=== PATIENT | female | born 1945 | race Caucasian/White ===

== ENCOUNTER → 2020-01-31 15:01 | Outpatient (BNVA) | payer MEDICARE, BC, SELFPAY | PROVIDERS: Family Provider Nurse Practitioner; PCP Family Medicine; Visit Provider Family Medicine | DX: I10 Essential (primary) hypertension (principal); Z12.31 Encounter for screening mammogram for malignant neoplasm of breast; K21.9 Gastro-esophageal reflux disease without esophagitis; M54.32 Sciatica, left side; M54.31 Sciatica, right side | CPT/HCPCS: 80053; 80061; 84443; 85025 ==

== ENCOUNTER → 2020-02-07 09:08 | Outpatient (BNVA) | payer MEDICARE, BC, SELFPAY | PROVIDERS: Family Provider Nurse Practitioner; PCP Family Medicine; Visit Provider Family Medicine | DX: R89.9 Unspecified abnormal finding in specimens from other organs, systems and tissues (principal) | CPT/HCPCS: 80053; 85025 ==

== ENCOUNTER → 2020-05-18 12:43 | Outpatient (BNVA) | payer MEDICARE, BC, SELFPAY | PROVIDERS: Family Provider Nurse Practitioner; PCP Family Medicine; Visit Provider Family Medicine | DX: Z20.828 Contact with and (suspected) exposure to other viral communicable diseases (principal) | CPT/HCPCS: 87635 ==

== ENCOUNTER → 2020-10-10 08:37 | Outpatient (BNVA) | payer MEDICARE, BC, SELFPAY | PROVIDERS: Family Provider Nurse Practitioner; PCP Family Medicine; Visit Provider Internal Medicine Cardiovascular Disease | DX: E78.5 Hyperlipidemia, unspecified (principal); R60.9 Edema, unspecified; N18.9 Chronic kidney disease, unspecified; Z79.01 Long term (current) use of anticoagulants; I50.33 Acute on chronic diastolic (congestive) heart failure; I10 Essential (primary) hypertension | CPT/HCPCS: 80048; 80061; 80076; 83880; 84443; 85025 ==

== ENCOUNTER 2020-10-25 15:28 | Outpatient (CLI) | payer MEDICARE, BC, SELFPAY ==
--- NOTE | 2020-10-25 15:45 | USCV_ITS ---
Hetal Maldonado Age: 75 Gender: F : 1945 Exam Date: 10/25/2020 15:52 Ordering Phys: Elias Han MD ([email or web address]) Technologist: Steve Steward Exam Location: [facility] [place] Indication: SOB BP: 186 / 90 HR: 63 Rhythm: Sinus Technical Quality: Good MEASUREMENTS (Male / Female) Normal Values 2D ECHO LV Diastolic Diameter PLAX 3.7 cm 4.2 - 5.9 / 3.9 - 5.3 cm LV Systolic Diameter PLAX 2.3 cm IVS Diastolic Thickness 1.4 cm 0.6 - 1.0 / 0.6 - 0.9 cm IVS Systolic Thickness 1.7 cm LVPW Diastolic Thickness 1.8 cm 0.6 - 1.0 / 0.6 - 0.9 cm LVPW Systolic Thickness 2.3 cm LVOT Diameter 2.0 cm LV Ejection Fraction 2D Teich 67.4 % LV Ejection Fraction MOD 2C 58.2 % LV Ejection Fraction 2C AL 59.4 % LA Diameter 3.7 cm LA Width 3.8 cm LA Height 5.8 cm RA Width 3.7 cm RA Height 4.5 cm Aorta at Sinotubular Diameter 2.3 cm M-MODE LV Diastolic Diameter MM 4.4 cm 4.2 - 5.9 / 3.9 - 5.3 cm LV Systolic Diameter MM 2.5 cm LV Ejection Fraction MM Teich 75.5 % IVS Diastolic Thickness MM 2.1 cm 0.6 - 1.0 / 0.6 - 0.9 cm IVS Systolic Thickness MM 2.0 cm LVPW Diastolic Thickness MM 1.1 cm 0.6 - 1.0 / 0.6 - 0.9 cm LVPW Systolic Thickness MM 1.6 cm Aortic Annulus Diameter 2.5 cm LA Ao Ratio MM 1.5 MV E Point Septal Separation 0.4 cm DOPPLER AV Peak Velocity 232.0 cm/s LVOT Peak Velocity 173.0 cm/s AV Area Cont Eq vti 2.5 cm squared AV Area Cont Eq pk 2.3 cm squared MV Area PHT 3.3 cm squared Mitral E to A Ratio 1.2 MV E' Velocity 81.0 cm/s Mitral E to MV E' Ratio 16.8 Mitral E to LV E' Lateral Ratio 16.0 Mitral E to LV E' Septal Ratio 17.5 TR Peak Velocity 325.0 cm/s TR Peak Gradient 42.3 mmHg TR Mean Velocity 229.2 cm/s TR Mean Gradient 23.9 mmHg TR Velocity Time Integral 93.6 cm PV Peak Velocity 80.0 cm/s RV Acceleration Time 0.1 s RV Ejection Time 0.3 s RV AcT/ET 0.5 FINDINGS Left Ventricle Normal left ventricular size and systolic function, EF 65 %. Mild left ventricular hypertrophy. No regional wall motion abnormalities. Grade III/IV diastolic dysfunction (restrictive filling pattern), severely elevated filling pressures. Right Ventricle The right ventricle is normal in size and function. Right Atrium The right atrium is normal in size. Left Atrium Mildly increased left atrial size. Mitral Valve Thickened mitral valve. Moderate mitral annular calcification. Mild mitral valve regurgitation. Aortic Valve Thickened aortic valve. Aortic valve sclerosis. Tricuspid Valve Mild tricuspid valve regurgitation. Pulmonic Valve Pulmonic valve not well visualized. Pericardium Normal pericardium without effusion. Aorta Normal ascending aorta dimension. CONCLUSIONS Normal left ventricular size and systolic function, EF 65 %. Mild left ventricular hypertrophy. No regional wall motion abnormalities. Grade III/IV diastolic dysfunction (restrictive filling pattern), severely elevated filling pressures. Thickened mitral valve. Moderate mitral annular calcification. Mild mitral valve regurgitation. Mildly increased left atrial size. Aortic valve sclerosis. Mild tricuspid valve regurgitation. Estimated pulmonary artery peak systolic pressure of 24 mmHg There is no pericardial effusion. There are no intracardiac masses. No previous study is available for comparison. Dr Elias Han MD [facility] (Electronically Signed) Final Date: 26 October 2020 16:51 S
== END 2020-10-25 15:29 | disposition home or self-care (01) ==
LOC: US 15:29
PROVIDERS: PCP Family Medicine; Visit Provider Internal Medicine Cardiovascular Disease
DX: R06.02 Shortness of breath (principal); I08.3 Combined rheumatic disorders of mitral, aortic and tricuspid valves
CPT/HCPCS: 93306

== ENCOUNTER → 2020-11-06 09:59 | Outpatient (BNVA) | payer MEDICARE, BC, SELFPAY | PROVIDERS: PCP Family Medicine; Visit Provider Internal Medicine Cardiovascular Disease | DX: R06.02 Shortness of breath (principal); R60.9 Edema, unspecified; E07.9 Disorder of thyroid, unspecified | CPT/HCPCS: 83880; 84443 ==

== ENCOUNTER → 2020-11-20 08:48 | Outpatient (BNVA) | payer MEDICARE, BC, SELFPAY | PROVIDERS: PCP Family Medicine; Visit Provider Internal Medicine Cardiovascular Disease | DX: R06.02 Shortness of breath (principal); R60.9 Edema, unspecified; I50.33 Acute on chronic diastolic (congestive) heart failure | CPT/HCPCS: 80048; 83880 ==

== ENCOUNTER 2020-12-04 07:08 | Outpatient (CLI) | payer MEDICARE, BC, SELFPAY ==
[2020-12-04 07:46] VITALS: BMI 33.7
--- NOTE | 2020-12-04 07:49 | ECG_ITS ---
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 Interpretive Statements NAME OF STUDY: LEXISCAN SESTAMIBI STRESS TEST INDICATION: Sob, PROCEDURE: At the baseline, the EKG revealed normal sinus rhythm with normal ST-T's. The baseline blood pressure was 182/71 mm Hg with a heart rate of 71 beats/min. Lexiscan was infused over a period of 20 seconds. A total of 0.4 milligrams of Lexiscan was infused. The stress phase was continued for a total of 5 minutes. Heart rate at the end of the stress phase was 80/min with a blood pressure 182/56 mmHg. The EKG at the peak infusion revealed no significant changes. Sestamibi was injected 20 seconds after the Lexiscan infusion. Blood pressure at the end of the recovery phase was 170/58 with a heart rate of 76 per minute. CONCLUSION: 1. No significant EKG changes with the LexiScan infusion 2. No LexiScan induced chest pain or cardiac arrhythmia 3. Normal blood pressure and heart rate response 4. Sestamibi/sestamibi perfusion scan pending; see separate report. Electronically Signed On 12-06-2020 8:42:44 CDT by Elias Han M.D. [id number]
--- NOTE | 2020-12-04 07:50 | NMCV_ITS ---
NM lori perf SPECT r/s* [id number] Hetal Maldonado Age: 75 Gender: F : 1945 Exam Date: 12/04/2020 08:43 Ordering Phys: Elias Han MD ([email or web address]) Technologist: CRISTAL Mendez Exam Location: [facility] Indications: SHORTNESS OF BREATH STRESS TEST Please see separate stress test report in [facility] for full findings IMAGE PROTOCOL Rest/Stress 1 Lexiscan Day Radiopharmaceutical Dose (mCi) Administration Site Administered by Rest: Tc-99m 10.8 IV CRISTAL Mendez Sestamibi Stress:Tc-99m 32.9 IV CRISTAL Ayala Sestamibi Rest: 04-Dec-2020 60 Discovery 630 Stress: 04-Dec-2020 30 Discovery 630 0.4mg Lexiscan. Images obtained in supine and prone position. SPECT RESULTS Technical Quality: Excellent Raw Data Analysis: Normal Image Corrections: No attenuation or motion correction applied Summed Stress Score: 1 Summed Rest Score: 0 Summed Difference Score: 1 PERFUSION FINDINGS Small area of decreased aseptic was noted in the apical lateral region with a complete reversibility. No other significant perfusion of normalities were noted. FUNCTIONAL RESULTS (calculated via Gated SPECT) Stress Image LV EF (%): 83 Stress EDV (mL):60 TID: 0.87 Stress ESV (mL):10 FUNCTIONAL FINDINGS: Segmental wall motion analysis revealing no gross wall motion normalities. IMPRESSIONS 1. Myocardial perfusion imaging revealing a small area of reversible defect in the apical lateral region, suggestive of ischemia in the distribution of the left circumflex artery. 2. Normal LV ejection fraction of 83%. 3. LV wall motion analysis revealing no gross wall motion normalities. 4. Normal LV volume. No similar previous studies are available for comparison Corrected copy of the report from 12/04/2020 Dr Elias Han MD [facility] (Electronically Signed) Final Date: 04 December 2020 17:40 Amended: 05 December 2020 18:29 C
[2020-12-04] MEDS: regadenoson 0.4 Mg/5 ml Syringe IVP (09:34)
[2020-12-04 09:36] VITALS: BP 170/58; PULSE 76
== END 2020-12-04 07:09 | disposition home or self-care (01) ==
LOC: CDL 07:10
PROVIDERS: PCP Family Medicine; Visit Provider Internal Medicine Cardiovascular Disease
DX: R06.02 Shortness of breath (principal)
CPT/HCPCS: 78452; 93017; A9500; J2785

== ENCOUNTER → 2021-03-20 10:46 | Outpatient (BNVA) | payer MEDICARE, BC, SELFPAY | PROVIDERS: PCP Family Medicine; Visit Provider Internal Medicine Cardiovascular Disease | DX: I50.33 Acute on chronic diastolic (congestive) heart failure (principal); E78.5 Hyperlipidemia, unspecified; R06.02 Shortness of breath; Z79.01 Long term (current) use of anticoagulants | CPT/HCPCS: 80048; 80061; 83880 ==

== ENCOUNTER → 2021-05-16 09:16 | Outpatient (BNVA) | payer MEDICARE, BC, SELFPAY | PROVIDERS: PCP Family Medicine; Visit Provider Family Medicine | DX: I11.0 Hypertensive heart disease with heart failure (principal); I50.33 Acute on chronic diastolic (congestive) heart failure; M79.671 Pain in right foot | CPT/HCPCS: 73630; 80061; 80076 ==

== ENCOUNTER → 2021-06-12 12:59 | Outpatient (BNVA) | payer MEDICARE, BC, SELFPAY | PROVIDERS: PCP Family Medicine; Referring Provider Family Medicine; Visit Provider Podiatrist Foot & Ankle Surgery | DX: M79.671 Pain in right foot (principal); Z46.89 Encounter for fitting and adjustment of other specified devices | CPT/HCPCS: 73630; 97760; L4397 ==

== ENCOUNTER 2021-06-12 14:54 | Outpatient (CLI) | payer MEDICARE, BC, SELFPAY | END 2021-06-12 14:55 | disposition home or self-care (01) | LOC: SPT 14:54 | PROVIDERS: PCP Family Medicine; Visit Provider Podiatrist Foot & Ankle Surgery | DX: Z46.89 Encounter for fitting and adjustment of other specified devices (principal); M79.671 Pain in right foot | CPT/HCPCS: 97760; L4397 ==

== ENCOUNTER 2021-07-08 08:35 | Emergency (ER) | payer MEDICARE, BC, SELFPAY ==
[2021-07-08 08:40] VITALS: BP 146/68; PULSE 74; RESP 18; TEMP 36.6; O2SAT 99; BMI 34.3
--- NOTE | 2021-07-08 09:32 | ECG_ITS ---
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 Measurements Intervals [place] Rate: 61 P: 72 WV: 141 QRS: 5 QRSD: 105 T: 64 QT: 419 QTc: 425 Interpretive Statements SINUS RHYTHM WITH SINUS ARRHYTHMIA LOW QRS VOLTAGE IN PRECORDIAL LEADS [QRS DEFLECTION < 1.0 mV IN CHEST LEADS] INCOMPLETE RIGHT BUNDLE BRANCH BLOCK [90+ ms QRS DURATION, TERMINAL R IN V1/V2, 40+ ms S IN I/aVL/V4/V5/V6] No previous ECG available for comparison Electronically Signed On 07-08-2021 16:45:13 SANITATION WORKER by Campbell Martinez M.D. [email or web address] medical [email or web address] system [id number]
--- NOTE | 2021-07-08 09:33 | XRR_ITS ---
PROCEDURE INFORMATION: Exam: XR Chest Exam date and time: 07/08/2021 9:33 AM Age: 76 years old Clinical indication: Cough and dyspnea; Prior surgery; Surgery type: Mohs; Patient HX: History--diffculty breathing, productive cough. Congestion in chest. No fever; Additional info: Dyspnea/cough TECHNIQUE: Imaging protocol: XR of the chest. Views: 1 view. COMPARISON: No relevant prior studies available. FINDINGS: Lungs: Lungs are well aerated without a focal area of consolidation. Pleural spaces: Unremarkable. No pleural effusion. No pneumothorax. Heart/Mediastinum: The cardiac silhouette appears enlarged, some of which is magnification related to the AP projection. Bones/joints: Unremarkable. XR/XR chest 1V portable [id number] IMPRESSION: Lungs are well aerated without a focal area of consolidation. Radiation Dose CTDIVOL = (mGy): DLP = (mGy-cm)
--- NOTE | 2021-07-08 09:33 | ED_ITS ---
HPI - SOB/Dyspnea General: Chief Complaint: Shortness of Breath/Dyspnea Stated Complaint: Trouble Breathing Time Seen by Provider: 07/08/21 09:08 History of Present Illness: HPI Narrative: 68-year-old female comes in planing of cough cold congestion that started 2 days ago. Mildly productive cough clear to yellow sputum. Patient reports having had asthma problems in the past. She did have Covid that she is known of but she has been vaccinated. Denies fever sweats chills denies any diarrhea. MD elicited complaint: shortness of breath and cough Pertinent past history: asthma Onset (ago): day(s) (2) Timing: constant Severity: mild Exacerbating factors: coughing Relieving factors: rest Known history of: asthma Associated symptoms: Reports chest congestion and cough; Deny abdominal pain, chest pain, diaphoresis, dizziness, extremity pain, fever(s), hemoptysis, lightheadedness, myalgias, nausea, orthopnea, palpitations, paresthesias, polydipsia, polyuria, rash, sense of impending doom, syncope or vomiting Treatment prior to arrival: none Review of Systems Const: Denies: fever(s) or diaphoresis ENMT: Denies: throat pain, ear or mastoid pain, nasal discharge or nasal congestion Card: Denies: chest pain, palpitations, lightheadedness, syncope or orthopnea Resp: Reports: chest congestion; Denies: hemoptysis GI: Denies: abdominal pain, nausea or vomiting : Denies: flank pain, difficulty voiding, dysuria, urinary frequency or urinary urgency Musc: Denies: extremity pain Skin/Breast: Denies: rash or pruritus Neuro: Denies: dizziness Endo: Denies: polyuria or polydipsia PFSH ED PFSH: Medical History (Updated 07/08/21 @ 10:34 by Thomas Vivar DO) Gastroesophageal reflux disease History of skin cancer Hypertension Family History Mother Anesthesia complication CAD (coronary artery disease) Father Cancer Lung disease Grandmother CAD (coronary artery disease) Diabetes Denies family history of Clotting disorder Dementia Chronic kidney disease (CKD) Suicide Bleeding disorder Stroke Social History Alcohol intake: never Marital status: / Current occupational status: retired Physical Exam Const: COMMON NORMALS: no acute distress GENERAL APPEARANCE: cooperative and comfortable ORIENTATION/CONSCIOUSNESS: Yes awake, Yes oriented to person, Yes oriented to place and Yes oriented to time HENMT: COMMON NORMALS: normocephalic and atraumatic HEAD & SCALP: normocephalic and atraumatic Neck/C-Spine: COMMON NORMALS: no JVD Resp: COMMON NORMALS: normal respiratory effort, No retractions and No use of accessory muscles AUSCULTATION: rhonchi right upper and wheezes Cardio: COMMON NORMALS: no JVD, regular rate, regular rhythm and No murmurs present (Cardio) RATE: regular rate RHYTHM: regular rhythm GI: COMMON NORMALS: Soft to palpation and No hepatosplenomegaly present AUSCULTATION: Yes normoactive bowel sounds PALPATION: Yes Soft to palpation, No Tenderness to palpation present (GI), No Guarding due to palpation present (GI) and Yes No hepatosplenomegaly present Extremity: COMMON NORMALS: normal to inspection, capillary refill normal, no clubbing, cyanosis or edema, no calf tenderness and no pedal edema Neuro: SENSORIUM/ORIENTATION: Yes oriented to person, Yes oriented to place and Yes oriented to time Skin: COMMON NORMALS: no rashes or lesions noted GENERAL SKIN EXAM: no rashes or lesions noted Course Vital Signs: Vital signs: Vital Signs Temperature 97.9 F 07/08/21 08:40 Pulse Rate 74 07/08/21 08:40 Respiratory Rate 18 07/08/21 08:40 Blood Pressure 146/68 07/08/21 08:40 Pulse Oximetry 99 07/08/21 08:40 MDM - SOB/Dyspnea MDM Narrative: Medical decision making narrative: Reviewed labs and imaging. We did swab her for Covid will contact you with results discharge now for with doxycycline Medrol Dosepak albuterol as needed she said her sats are good she no need for oxygen supplementation recommend self quarantine until results are back. Lab Data: Labs: Lab Results 07/08/21 07/08/21 07/08/21 09:51 09:51 10:53 WBC 13.0 10^3/uL H 10 ^3/uL (4.0-10.0) RBC 3.98 10^6/uL L 10 ^6/uL (4.1-5.3) Hgb 13.0 g/dL g/dL (11.5-15.3) Hct 38.4 % % (37.0-47.0) MCV 96.5 fl fl (81-99) MCH 32.7 pg pg (28.0-34.0) MCHC 33.9 g/dL g/dL (30.0-36.0) RDW 12.1 % % (12.1-15.1) Plt Count 121 10^3/cmm L 10 ^3/cmm (130-400) MPV 12.8 fL H fL (7.4-10.4) Neut % (Auto) 76.5 % % Lymph % (Auto) 15.3 % % [place] % (Auto) 6.6 % % Eos % (Auto) 0.7 % % Baso % (Auto) 0.1 % % Neut # (Auto) 9.95 10^3/uL H 10 ^3/uL (1.8-7.7) Lymph # (Auto) 2.0 10^3/uL 10^3/ uL (0.8-4.8) [place] # (Auto) 0.9 10^3/uL 10^3/ uL (0.2-0.9) Eos # (Auto) 0.1 10^3/uL 10^3/ uL (0.0-0.8) Baso # (Auto) 0.0 10^3/uL 10^3/ uL (0.0-0.1) Nucleated RBC % (a uto) 0 % % Nucleated RBCs # 0.0 /100WBC /100W BC Sodium 141 mmol/L mmol/L (136-145) Potassium 3.8 mmol/L mmol/L (3.5-5.1) Chloride 104 mmol/L mmol/L (98-107) Carbon Dioxide 24 mmol/L mmol/L (22-29) Anion Gap 16.8 (5-19) BUN 22 mg/dL mg/dL (8-23) Creatinine 1.1 mg/dL H mg/dL (0.5-0.9) GFR Calculation Not Reportable Glucose 114 mg/dL mg/dL (65-115) Calculated Osmolal ity 296 mOsm/kg H mOs m/kg (285-295) Calcium 9.4 mg/dL mg/dL (8.5-10.5) Total Bilirubin 0.2 mg/dL mg/dL (0.15-1.2) AST 13 U/L U/L (0-32) ALT 9 U/L U/L (0-33) Alkaline Phosphata se 80 IU/L IU/L (35-105) Total Protein 6.7 g/dL g/dL (6.6-8.7) Albumin 3.8 g/dL g/dL (3.5-5.2) Globulin 2.9 g/dL g/dL (1.3-4.6) SARS-CoV-2 Ag (Rap id) Negative (Negative) Discharge Plan Discharge Patient Disposition: Home Clinical Impression: Bronchitis Condition: Stable Prescriptions: New doxycycline hyclate 100 mg capsule 100 mg PO BID 10 Days Qty: 20 RF: 0 Medrol (Carlo) 4 mg tablets,dose pack See Rx Instructions .ROUTE .COMPLEX Qty: 21 RF: 0 albuterol sulfate 90 mcg/actuation HFA aerosol inhaler 2 inh INHALATION Q4H PRN (Reason: shortness of breath or wheezing) Qty: 18 R F: 0 No Action aspirin [Adult Low Dose Aspirin] 81 mg tablet,delayed release (DR/EC) 81 mg PO DAILY RF: 0 omeprazole 20 mg capsule,delayed release(DR/EC) 40 mg PO DAILY RF: 0 carvedilol 12.5 mg tablet 6.25 mg PO BID RF: 0 potassium chloride 10 mEq capsule, extended release See Rx Instructions .ROUTE .COMPLEX Qty: 90 RF: 1 furosemide 40 mg tablet 40 mg PO BID Qty: 60 RF: 4 cholecalciferol (vitamin D3) 25 mcg (1,000 unit) tablet 100 mcg PO DAILY RF: 0 PreserVision AREDS-2 [id number] dd-frod-re-mg capsule 1 tab PO BID RF: 0 ascorbate calcium (vitamin C) 500 mg tablet 500 mg PO BID RF: 0 (DME) Night Splint to the right See Rx Instructions .Route .MEDSUPPLY Qty: 1 RF: 0 rosuvastatin [Crestor] 10 mg tablet 10 mg PO DAILY Qty: 30 RF: 5 amlodipine 10 mg tablet 10 mg PO DAILY Qty: 30 RF: 5 spironolactone 25 mg tablet 25 mg PO DAILY 30 Days Qty: 90 RF: 3 Discharge Orders: Discharge ED (Routine); Ordered 11/08/21 Ordered By: Thomas Vivar Referrals: Jessie Villalpando MD [Primary Care Provider] - Patient Instructions: Opioid Safety Coding Level of Care Code ED Catapult And Arresting Gear Officer for Chg Fwd Exam Comprehensive
[2021-07-08 10:05] LABS: Basophils % 0.1 %; Eosinophils # 0.1 10^3/uL (0.0-0.8); Eosinophils % 0.7 %; Hematocrit 38.4 % (37.0-47.0); Lymphocytes % 15.3 %; Mean Corpuscular HGB Conc 33.9 g/dL (30.0-36.0); Mean Corpuscular Hemoglobin 32.7 pg (28.0-34.0); Mean Corpuscular Volume 96.5 fl (81-99); Mean Platelet Volume 12.8 fL (7.4-10.4); Monocytes # 0.9 10^3/uL (0.2-0.9); Monocytes % 6.6 %; Neutrophils # 9.95 10^3/uL (1.8-7.7); Neutrophils % 76.5 %; Nucleated Red Blood Cells % 0 %; Platelet Count 121 10^3/cmm (130-400); Red Blood Count 3.98 10^6/uL (4.1-5.3); Red Cell Distribution Width 12.1 % (12.1-15.1)
[2021-07-08 10:18] LABS: Alanine Aminotransferase 9 U/L (0-33); Albumin Level 3.8 g/dL (3.5-5.2); Alkaline Phosphatase 80 IU/L (35-105); Anion Gap 16.8 (5-19); Aspartate Amino Transferase 13 U/L (0-32); Blood Urea Nitrogen 22 mg/dL (8-23); Calcium 9.4 mg/dL (8.5-10.5); Carbon Dioxide 24 mmol/L (22-29); Chloride 104 mmol/L (98-107); Globulin 2.9 g/dL (1.3-4.6); Glucose 114 mg/dL (65-115); Osmolality Calculated 296 mOsm/kg (285-295); Potassium 3.8 mmol/L (3.5-5.1); Sodium 141 mmol/L (136-145); Total Bilirubin 0.2 mg/dL (0.15-1.2); Total Protein 6.7 g/dL (6.6-8.7)
[2021-07-08 12:07] LABS: SARS Covid-2 Antigen Negative (Negative)
[2021-07-09 14:34] LABS: Coronavirus Test Green County Not Detected
--- NOTE | 2021-07-09 16:24 | PC.NURSE ---
Notified pt of negative COVID
== END 2021-07-08 11:49 | disposition home or self-care (01) ==
PROVIDERS: Emergency Provider Family Medicine; PCP Family Medicine
DX: J40 Bronchitis, not specified as acute or chronic (principal); Z79.82 Long term (current) use of aspirin; Z85.828 Personal history of other malignant neoplasm of skin; K21.9 Gastro-esophageal reflux disease without esophagitis; I10 Essential (primary) hypertension
CPT/HCPCS: 36415; 71045; 80053; 85025; 87426; 87635; 93005; 99282

== ENCOUNTER → 2021-09-16 12:05 | Outpatient (BNVA) | payer MEDICARE, BC, SELFPAY | PROVIDERS: PCP Family Medicine; Visit Provider Internal Medicine Cardiovascular Disease | DX: I11.0 Hypertensive heart disease with heart failure (principal); I50.33 Acute on chronic diastolic (congestive) heart failure; R06.02 Shortness of breath; R60.9 Edema, unspecified; E78.5 Hyperlipidemia, unspecified; N18.9 Chronic kidney disease, unspecified; Z79.01 Long term (current) use of anticoagulants | CPT/HCPCS: 80048; 80061 ==

== ENCOUNTER 2021-11-05 07:35 | Outpatient (CLI) | payer MEDICARE, BC, SELFPAY | END 2021-11-05 07:36 | disposition home or self-care (01) | LOC: SPT 07:36 | PROVIDERS: PCP Family Medicine; Visit Provider Podiatrist Foot & Ankle Surgery | DX: Z46.89 Encounter for fitting and adjustment of other specified devices (principal); M21.41 Flat foot [pes planus] (acquired), right foot; M21.42 Flat foot [pes planus] (acquired), left foot; M72.2 Plantar fascial fibromatosis | CPT/HCPCS: 97760; L3030 ==

== ENCOUNTER → 2021-11-26 13:33 | Outpatient (BNVA) | payer MEDICARE, BC, SELFPAY | PROVIDERS: PCP Family Medicine; Visit Provider Family Medicine | DX: R05.9 Cough, unspecified (principal) | CPT/HCPCS: 71046 ==

== ENCOUNTER → 2022-03-20 12:17 | Outpatient (BNVA) | payer MEDICARE, BC, SELFPAY | PROVIDERS: PCP Family Medicine; Visit Provider Internal Medicine Cardiovascular Disease | DX: I13.0 Hypertensive heart and chronic kidney disease with heart failure and stage 1 through stage 4 chronic kidney disease, or unspecified chronic kidney disease (principal); N18.9 Chronic kidney disease, unspecified; R06.02 Shortness of breath; R60.9 Edema, unspecified; E78.5 Hyperlipidemia, unspecified; I50.33 Acute on chronic diastolic (congestive) heart failure; Z79.01 Long term (current) use of anticoagulants; R07.9 Chest pain, unspecified; I49.9 Cardiac arrhythmia, unspecified | CPT/HCPCS: 36415; 80048; 80061; 80076; 83880; 84443 ==

== ENCOUNTER → 2022-04-17 08:54 | Outpatient (BNVA) | payer MEDICARE, BC, SELFPAY | PROVIDERS: PCP Family Medicine; Visit Provider Internal Medicine Cardiovascular Disease | DX: R79.89 Other specified abnormal findings of blood chemistry (principal); E07.9 Disorder of thyroid, unspecified | CPT/HCPCS: 84443 ==

== ENCOUNTER → 2022-06-20 12:10 | Outpatient (BNVA) | payer MEDICARE, BC, SELFPAY | PROVIDERS: PCP Family Medicine; Visit Provider Family Medicine | DX: E03.9 Hypothyroidism, unspecified (principal); E78.5 Hyperlipidemia, unspecified; I10 Essential (primary) hypertension; R60.9 Edema, unspecified; K21.9 Gastro-esophageal reflux disease without esophagitis | CPT/HCPCS: 80053; 80061; 84443; 85025 ==

== ENCOUNTER → 2022-10-08 11:45 | Outpatient (BNVA) | payer MEDICARE, BC, SELFPAY | PROVIDERS: PCP Family Medicine; Visit Provider Internal Medicine Cardiovascular Disease | DX: I11.0 Hypertensive heart disease with heart failure (principal); I50.32 Chronic diastolic (congestive) heart failure; R00.2 Palpitations; R06.02 Shortness of breath; E78.5 Hyperlipidemia, unspecified; G47.33 Obstructive sleep apnea (adult) (pediatric); Z99.89 Dependence on other enabling machines and devices; I10 Essential (primary) hypertension; R60.9 Edema, unspecified | CPT/HCPCS: 36415; 80048; 83880; 99214 ==

== ENCOUNTER 2022-11-10 09:22 | Outpatient (CLI) | payer MEDICARE, BC, SELFPAY ==
[2022-11-10 10:21] LABS: Anion Gap 16.7 (5-19); Blood Urea Nitrogen 25 mg/dL (8-23); Calcium 9.7 mg/dL (8.5-10.5); Carbon Dioxide 23 mmol/L (22-29); Chloride 100 mmol/L (98-107); Glucose 105 mg/dL (65-115); NT Pro B Type Natriuretic Pept 439 pg/mL (0-450); Osmolality Calculated 285 mOsm/kg (285-295); Potassium 4.7 mmol/L (3.5-5.1); Sodium 135 mmol/L (136-145)
== END 2022-11-10 09:23 | disposition home or self-care (01) ==
LOC: LAB 09:28
PROVIDERS: PCP Family Medicine; Visit Provider Internal Medicine Cardiovascular Disease
DX: I10 Essential (primary) hypertension (principal); I50.33 Acute on chronic diastolic (congestive) heart failure; R60.9 Edema, unspecified
CPT/HCPCS: 36415; 80048; 83880

== ENCOUNTER → 2022-12-01 08:37 | Outpatient (BNVA) | payer MEDICARE, BC, SELFPAY | PROVIDERS: PCP Family Medicine; Visit Provider Family Medicine | DX: N18.9 Chronic kidney disease, unspecified (principal) | CPT/HCPCS: 80048 ==

== ENCOUNTER → 2023-04-08 12:34 | Outpatient (BNVA) | payer MEDICARE, BC, SELFPAY | PROVIDERS: PCP Family Medicine; Visit Provider Internal Medicine Cardiovascular Disease | DX: I13.0 Hypertensive heart and chronic kidney disease with heart failure and stage 1 through stage 4 chronic kidney disease, or unspecified chronic kidney disease (principal); I50.33 Acute on chronic diastolic (congestive) heart failure; N18.9 Chronic kidney disease, unspecified; R60.9 Edema, unspecified; G47.33 Obstructive sleep apnea (adult) (pediatric); E78.5 Hyperlipidemia, unspecified | CPT/HCPCS: 99213 ==

== ENCOUNTER → 2023-04-20 09:34 | Outpatient (BNVA) | payer MEDICARE, BC, SELFPAY | PROVIDERS: PCP Family Medicine; Visit Provider Nurse Practitioner Family | DX: J20.9 Acute bronchitis, unspecified (principal); I10 Essential (primary) hypertension; E78.5 Hyperlipidemia, unspecified | CPT/HCPCS: 80053; 80061; 83880; 84443 ==

== ENCOUNTER → 2023-04-23 11:21 | Outpatient (BNVA) | payer MEDICARE, BC, SELFPAY | PROVIDERS: PCP Family Medicine; Visit Provider Nurse Practitioner Family | DX: I50.33 Acute on chronic diastolic (congestive) heart failure (principal) | CPT/HCPCS: 80053; 83880 ==

== ENCOUNTER → 2023-04-27 09:33 | Outpatient (BNVA) | payer MEDICARE, BC, SELFPAY | PROVIDERS: PCP Family Medicine; Visit Provider Nurse Practitioner Family | DX: I50.9 Heart failure, unspecified (principal); N18.9 Chronic kidney disease, unspecified | CPT/HCPCS: 80053; 83880 ==

== ENCOUNTER → 2023-05-07 11:27 | Outpatient (BNVA) | payer MEDICARE, BC, SELFPAY | PROVIDERS: PCP Family Medicine; Visit Provider Nurse Practitioner Family | DX: I50.9 Heart failure, unspecified (principal); I10 Essential (primary) hypertension; N18.32 Chronic kidney disease, stage 3b | CPT/HCPCS: 80053; 83880 ==

== ENCOUNTER 2023-05-15 08:03 | Outpatient (CLI) | payer MEDICARE, BC, SELFPAY ==
--- NOTE | 2023-05-15 08:45 | USCV_ITS ---
Hetal Maldonado Age: 78 Gender: F : 1945 Exam Date: 05/15/2023 09:00 Ordering Phys: Cristal Cornejo NP Technologist: CT Exam Location: [facility] [place] Indication: Chf BP: 124 / 70 HR: 51 Rhythm: Sinus Technical Quality: Adequate MEASUREMENTS (Male / Female) Normal Values 2D ECHO LV Chamber Size 4.3 cm RV Chamber Size 3.9 cm LVOT Diameter 1.9 cm LV Ejection Fraction MOD 2C 51.0 % LV Ejection Fraction 2C AL 52.4 % LA Diameter 4.2 cm LA Width 4.2 cm LA Height 6.0 cm RA Width 3.6 cm RA Height 4.9 cm Aorta at Sinotubular Diameter 1.9 cm IVC Diameter 1.6 cm M-MODE Aortic Annulus Diameter 2.5 cm LA Ao Ratio MM 1.8 MV E Point Septal Separation 1.3 cm DOPPLER AV Peak Velocity 196.0 cm/s LVOT Peak Velocity 162.0 cm/s AV Area Cont Eq vti 2.6 cm squared AV Area Cont Eq pk 2.4 cm squared MV Area PHT 2.1 cm squared Mitral E to A Ratio 1.1 MV E' Velocity 84.0 cm/s Mitral E to MV E' Ratio 19.4 Mitral E to LV E' Lateral Ratio 25.0 Mitral E to LV E' Septal Ratio 15.9 TR Peak Velocity 345.0 cm/s TR Peak Gradient 47.6 mmHg TV Peak E Velocity 91.0 cm/s Right Atrial Pressure 3.0 mmHg Pulmonary Artery Systolic Pressu 50.6 mmHg PV Peak Velocity 102.0 cm/s FINDINGS Left Ventricle Normal left ventricular size, systolic function and wall thickness, with no regional wall motion abnormalities. Left ventricular ejection fraction is estimated at 70 %. Grade II diastolic dysfunction, moderately elevated filling pressures. Right Ventricle Normal right ventricular size and systolic function. Right ventricular systolic pressure 55 mmHg. Right Atrium Normal right atrial size. Left Atrium Moderately increased left atrial size. Mitral Valve Severe mitral annular calcification. Thickened mitral valve. No mitral valve stenosis. Mild mitral valve regurgitation. Aortic Valve Aortic valve not well visualized. No aortic valve stenosis. [id number] aortic valve regurgitation. Tricuspid Valve Structurally normal tricuspid valve. No tricuspid valve stenosis. Moderate tricuspid valve regurgitation. Pulmonic Valve Pulmonic valve not well visualized. Pericardium No pericardial effusion. Aorta Normal size aortic root and proximal ascending aorta. IVC Normal IVC dimension with >50% respiratory change of the inferior vena cava. CONCLUSIONS 1. Normal left ventricular size, systolic function and wall thickness, with no regional wall motion abnormalities. Left ventricular ejection fraction is estimated at 70 %. Grade II diastolic dysfunction, moderately elevated filling pressures. 2. [id number] aortic valve regurgitation. 3. Moderate tricuspid valve regurgitation. 4. When compared to study dated 10/25/2020, there is aortic and tricuspid valve regurgitation. Vandana Mcpherson MD (Electronically Signed) Final Date: 25 May 2023 14:43 S
== END 2023-05-15 08:04 | disposition home or self-care (01) ==
PROVIDERS: PCP Family Medicine; Visit Provider Nurse Practitioner Family
DX: I13.0 Hypertensive heart and chronic kidney disease with heart failure and stage 1 through stage 4 chronic kidney disease, or unspecified chronic kidney disease (principal); I50.30 Unspecified diastolic (congestive) heart failure; N18.32 Chronic kidney disease, stage 3b; I35.1 Nonrheumatic aortic (valve) insufficiency; I07.1 Rheumatic tricuspid insufficiency; R06.02 Shortness of breath
CPT/HCPCS: 93306; 99214

== ENCOUNTER → 2023-06-22 11:29 | Outpatient (BNVA) | payer MEDICARE, BC, SELFPAY | PROVIDERS: PCP Family Medicine; Visit Provider Nurse Practitioner Family | DX: Z00.00 Encounter for general adult medical examination without abnormal findings (principal); N18.32 Chronic kidney disease, stage 3b; I50.9 Heart failure, unspecified; E03.9 Hypothyroidism, unspecified; I10 Essential (primary) hypertension; E78.5 Hyperlipidemia, unspecified; R06.02 Shortness of breath; I50.33 Acute on chronic diastolic (congestive) heart failure | CPT/HCPCS: 80053; 80061; 83880; 84443 ==

== ENCOUNTER → 2023-10-26 12:26 | Outpatient (BNVA) | payer MEDICARE, BC, SELFPAY | PROVIDERS: PCP Family Medicine; Visit Provider Internal Medicine Cardiovascular Disease | DX: R07.9 Chest pain, unspecified (principal); R06.02 Shortness of breath; I11.0 Hypertensive heart disease with heart failure; I50.33 Acute on chronic diastolic (congestive) heart failure; E78.5 Hyperlipidemia, unspecified; I27.20 Pulmonary hypertension, unspecified; R94.31 Abnormal electrocardiogram [ECG] [EKG] | CPT/HCPCS: 36415; 80048; 83880; 93005; 99214 ==

== ENCOUNTER 2023-11-04 09:26 | Outpatient (CLI) | payer MEDICARE, BC, SELFPAY ==
--- NOTE | 2023-11-04 | ECG_ITS ---
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 Interpretive Statements NAME OF STUDY: LEXISCAN SESTAMIBI STRESS TEST INDICATION: Chest Pain; CHF PROCEDURE: At the baseline, the EKG revealed sinus bradycardia with a possible left atrial lodgment. The baseline heart was 56 bpm with a blood pressue of 136/63 mm of Hg Lexiscan was infused over a period of 20 seconds. A total of 0.4 milligrams of Lexiscan was infused. The stress phase was continued for a total of 5 minutes. Heart rate at the end of the stress phase was 71 bpm with a blood pressure 113/42 mm of Hg. The EKG at the peak infusion revealed no significant changes. Sestamibi was injected 20 seconds after the Lexiscan infusion. Heart rate at the end of the recovery phase was 68 bpm with a blood pressure of 119/49 mm of Hg. CONCLUSION: 1. No significant EKG changes with the LexiScan infusion 2. No LexiScan induced chest pain or cardiac arrhythmia 3. Normal blood pressure and heart rate response 4. Sestamibi/sestamibi perfusion scan pending; see separate report. Electronically Signed On 11-07-2023 20:40:23 VOCAL TEACHER by Elias Han M.D. [id number]
[2023-11-04 09:30] VITALS: BMI 35.4
--- NOTE | 2023-11-04 09:31 | NMCV_ITS ---
NM lori perf SPECT r/s* [id number] Hetal Maldonado Age: 78 Gender: F : 1945 Exam Date: 11/04/2023 10:19 Ordering Phys: Elias Han MD ([email or web address]) Technologist: CRISTAL Mendez Exam Location: [facility] Indications: CORONARY ANGIOPLASTY STATUS STRESS TEST Please see separate stress test report in [facility] for full findings IMAGE PROTOCOL Rest/Stress 1 Lexiscan Day Radiopharmaceutical Dose (mCi) Administration Site Administered by Rest: Tc-99m 10.6 IV CRISTAL Ayala Sestamibi Stress:Tc-99m 32.9 IV CRISTAL Ayala Sestamibi Rest: 04-Nov-2023 60 Discovery 630 Stress: 04-Nov-2023 30 Discovery 630 0.4mg Lexiscan. Supine position only as patient was unable to lay prone. SPECT RESULTS Technical Quality: Excellent Raw Data Analysis: Normal Image Corrections: No attenuation or motion correction applied Summed Stress Score: 4 Summed Rest Score: 7 Summed Difference Score: 0 PERFUSION FINDINGS Small area of moderately decreased tracer uptake was noted in the mid inferolateral, apical lateral and LV apex. Subtle area of reversibility was noted in this region by SPECT imaging. However with the polar plots, no significant reversibility was noted FUNCTIONAL RESULTS (calculated via Gated SPECT) Stress Image LV EF (%): 91 Stress EDV (mL):53 TID: 1.09 Stress ESV (mL):5 FUNCTIONAL FINDINGS: Segmental wall motion analysis revealing no gross wall motion abnormalities IMPRESSIONS 1. Myocardial perfusion imaging revealing small area of moderately decreased persistent tracer uptake in the inferolateral and apical regions with a subtle area of inconsistent reversibility, suggesting myocardial scarring in the distribution of the left circumflex artery with a subtle area of possible yaron- infarction ischemia. 2. Normal LV ejection fraction with 91% 3. LV wall motion analysis revealing no gross wall motion abnormalities. 4. Normal LV volume Compared to the study from 12/04/2020, there may not be a significant change Dr Elias Han MD FAC (Electronically Signed) Final Date: 04 November 2023 13:53 S
[2023-11-04] MEDS: regadenoson 0.4 Mg/5 ml Syringe 0.400000000000000022 MG IVP (11:04)
[2023-11-04 11:27] VITALS: BP 119/64; PULSE 64
== END 2023-11-04 09:27 | disposition home or self-care (01) ==
PROVIDERS: PCP Family Medicine; Visit Provider Internal Medicine Cardiovascular Disease
DX: Z98.61 Coronary angioplasty status (principal)
CPT/HCPCS: 36415; 78452; 93017; 96374; A9500; J2785

== ENCOUNTER → 2023-12-08 09:02 | Outpatient (BNVA) | payer MEDICARE, BC, SELFPAY | PROVIDERS: PCP Family Medicine; Visit Provider Nurse Practitioner Family | DX: M79.671 Pain in right foot (principal); M79.672 Pain in left foot; N18.32 Chronic kidney disease, stage 3b; M54.50 Low back pain, unspecified | CPT/HCPCS: 80053; 84550; 85025 ==

== ENCOUNTER 2023-12-13 09:54 | Inpatient (IN) | payer MEDICARE, BC, SELFPAY ==
[2023-12-13] VITALS (10 sets, daily range): BP systolic 108–142; BP diastolic 51–71; PULSE 63–86; RESP 16–18; TEMP 36.3–37.1; O2SAT 93–99; BMI 35.0
--- NOTE | 2023-12-13 10:20 | ED_ITS ---
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 All of this started just about a week ago. She had seen her primary BIRTHING NURSE who initially prescribed her Macrobid for UTI which gave her diarrhea so she was changed to Levaquin. She also started her on allopurinol for gout. She had an elevated uric acid and does have a swollen red left great toe. Patient says she is continue to have swelling in her legs. She has diffuse abdominal pain. She describes abdominal pain in her low abdomen also in her left upper abdomen. She has had some nausea. No vomiting. She has had generalized weakness. No known fevers. Although she did have chills frequently initially during this illness. Review of Systems 2 Narrative: Constitutional symptoms: Negative except as documented in HPI. Skin symptoms: Negative except as documented in HPI. Eye symptoms: Negative except as documented in HPI. ENMT symptoms: Negative except as documented in HPI. Respiratory symptoms: Negative except as documented in HPI. Cardiovascular symptoms: Negative except as documented in HPI. Gastrointestinal symptoms: Negative except as documented in HPI. Genitourinary symptoms: Negative except as documented in HPI. Musculoskeletal symptoms: Negative except as documented in HPI. Neurologic symptoms: Negative except as documented in HPI. Psychiatric symptoms: Negative except as documented in HPI. Endocrine symptoms: Negative except as documented in HPI. [facility] ED 2 PFSH: Medical History History of skin cancer Hypertension Gastroesophageal reflux disease Family History Mother Anesthesia complication CAD (coronary artery disease) Father Cancer Lung disease Grandmother CAD (coronary artery disease) Diabetes Denies family history of Clotting disorder Dementia Chronic kidney disease (CKD) Suicide Bleeding disorder Stroke Social History Smoking and tobacco/nicotine status: never used tobacco/nicotine Alcohol intake: never Substance/Drug Use: never Marital status: / Current occupational status: retired Physical Exam 2 Narrative: EXAM NARRATIVE: General: Alert, no acute distress. Skin: Warm, dry. Head: Normocephalic, atraumatic. Neck: Supple, trachea midline. Eye: Extraocular movements are intact. Ears, nose, mouth and throat: mucosa moist. Cardiovascular: Regular, Normal peripheral perfusion. Trace tibial edema Respiratory: Lungs are clear to auscultation, respirations are non-labored, breath sounds are equal, Symmetrical chest wall expansion. Gastrointestinal: Soft, some mild generalized tenderness palpation,, Non distended, Normal bowel sounds. Musculoskeletal: Normal ROM, no deformity. Some redness and swelling in her left great toe at the base Neurological: Alert and oriented, No focal neurological deficit observed. Psychiatric: Cooperative, appropriate mood & affect. Course 2 Vital Signs: Vital signs: Vital Signs Temperature 98.8 F 12/13/23 10:09 Pulse Rate 70 12/13/23 14:00 Respiratory Rate 17 12/13/23 14:46 Blood Pressure 141/52 12/13/23 14:00 Pulse Oximetry 96 12/13/23 14:00 Oxygen Delivery Me thod Room Air 12/13/23 14:00 MDM - General Adult Medical Decision Making Medical decision making: Differential diagnosis including but not limited to and based on the above HPI, review of systems and physical exam: Patient has multiple complaints. I think she does have gout that may need further treatment than just allopurinol. As far as her abdominal pain goes she primarily complains of lower abdominal pain with radiation to her left flank. I have concerned she might have a UTI that would be resistant to Levaquin. Urinalysis is ordered. Also have concern for kidney failure so a BMP and CBC were ordered. With her chills and continued symptoms also ordered a lactate and blood cultures. Orders placed to evaluate differential diagnosis based on the above differential, HPI and physical exam Lab Review: Laboratory results were reviewed and interpreted by myself the emergency room physician. Patient has significant leukocytosis with a white count of 14,000 and a left shift of 87%. Hemoglobin is down slightly at 10.8. Her sodium is down at 129. Most significantly her BUN and creatinine are 56 and 4.5. Creatinine was 3.5 about 5 days ago. Before that she had mild chronic renal disease usually at around 1.4. I reviewed the patient's medical record. CT of the abdomen pelvis without contrast: No evidence of renal stones or obstruction. She has diverticulosis without diverticulitis. Reexamination: Patient says she is feeling short of breath after she laid flat. She is sitting upright now on a little bit tachypneic. Her O2 sats are good. She is complaining of pain. I have ordered some morphine and Zofran for her. Lab Data 12/13/23 10:40 12/13/23 10:40 Radiology Impressions Abdomen/Pelvis CT 12/13/23 13:09 IMPRESSION: 1. No small bowel obstruction, abscess or free air. 2. Moderate sigmoid diverticulosis. No strong evidence for diverticulitis. 3. There is slight 3rd spacing of fluid present with perinephric fat stranding, trace left effusion, and trace pelvic free fluid. 4. Severe atherosclerosis and other chronic findings above. Laboratory Results WBC 13.48 10^3/uL (3.29-11.43) H 12/13/23 10:40 RBC 3.24 10^6/uL (3.85-5.65) L 12/13/23 10:40 Hgb 10.80 g/dL (11.27-16.99) L 12/13/23 10:40 Hct 31.4 % (36-47) L 12/13/23 10:40 MCV 96.9 fl (85-98) 12/13/23 10:40 MCH 33.3 pg (27-33) H 12/13/23 10:40 MCHC 34.4 g/dL (30-55) 12/13/23 10:40 RDW 11.3 % (12.1-15.1) L 12/13/23 10:40 Plt Count 41 10^3/cmm (157-399) L 12/13/23 10:40 MPV 12.2 fL (7.4-10.4) H 12/13/23 10:40 Neut % (Auto) 87.1 % 12/13/23 10:40 Lymph % (Auto) 5.9 % 12/13/23 10:40 [place] % (Auto) 6.0 % 12/13/23 10:40 Eos % (Auto) 0.4 % 12/13/23 10:40 Baso % (Auto) 0.1 % 12/13/23 10:40 Neut # (Auto) 11.72 10^3/uL (1.8-7.7) H 12/13/23 10:40 Lymph # (Auto) 0.8 10^3/uL (0.8-4.8) 12/13/23 10:40 Woodruff # (Auto) 0.8 10^3/uL (0.2-0.9) 12/13/23 10:40 Eos # (Auto) 0.1 10^3/uL (0.0-0.8) 12/13/23 10:40 Baso # (Auto) 0.0 10^3/uL (0.0-0.1) 12/13/23 10:40 Nucleated RBC % (auto) 0 % 12/13/23 10:40 Nucleated RBCs # 0.0 /100WBC 12/13/23 10:40 Sodium 129 mmol/L (136-145) L 12/13/23 10:40 Potassium 5.1 mmol/L (3.5-5.1) 12/13/23 10:40 Chloride 99 mmol/L (98-107) 12/13/23 10:40 Carbon Dioxide 14 mmol/L (22-29) L 12/13/23 10:40 Anion Gap 21.1 (5-19) H 12/13/23 10:40 BUN 56 mg/dL (8-23) H 12/13/23 10:40 Creatinine 4.5 mg/dL (0.5-0.9) H 12/13/23 10:40 GFR Calculation Not Reportable 12/13/23 10:40 Glucose 119 mg/dL (65-115) H 12/13/23 10:40 Calculated Osmolality 285 mOsm/kg (285-295) 12/13/23 10:40 Lactic Acid 0.9 mmol/L (0.5-2.2) 12/13/23 10:40 Calcium 9.5 mg/dL (8.5-10.5) 12/13/23 10:40 Total Bilirubin 0.5 mg/dL (0.15-1.2) 12/13/23 10:40 AST 10 U/L (0-32) 12/13/23 10:40 ALT 7 U/L (0-33) 12/13/23 10:40 Alkaline Phosphatase 83 U/L (35-105) 12/13/23 10:40 C-Reactive Protein 120.8 mg/L (0.0-4.9) H 12/13/23 10:40 Total Protein 7.4 g/dL (6.6-8.7) 12/13/23 10:40 Albumin 3.3 g/dL (3.5-5.2) L 12/13/23 10:40 Globulin 4.1 g/dL (1.3-4.6) 12/13/23 10:40 Urine Color Straw (Yellow) 12/13/23 11:02 Urine Appearance Hazy (CLEAR) A 12/13/23 11:02 Urine pH 6 (5-7) 12/13/23 11:02 Ur Specific [place] 1.005 (1.005-1.030) 12/13/23 11:02 Urine Protein Neg (Negative) 12/13/23 11:02 Urine Glucose (UA) Norm (Normal) 12/13/23 11:02 Urine Ketones Negative (Negative) 12/13/23 11:02 Urine Blood 2+ (Negative) H 12/13/23 11:02 Urine Nitrate Negative (Negative) 12/13/23 11:02 Urine Bilirubin Neg (Negative) 12/13/23 11:02 Urine Urobilinogen Norm mg/dL (Negative) 12/13/23 11:02 Ur Leukocyte Esterase 2+ (Negative) H 12/13/23 11:02 Urine RBC 5-10 /hpf (0-2) H 12/13/23 11:02 Urine WBC Too numerous to cnt /hpf (0-5) H 12/13/23 11:02 Ur Squamous Epith Cells 0-4 /hpf (0-5) H 12/13/23 11:02 Amorphous Sediment Not Reportable 12/13/23 11:02 Urine Bacteria 1+ /hpf (NONE) H 12/13/23 11:02 All radiology interpretation(s) finalized by discharge Other Data Assessment and plan: Urinary tract infection Acute on chronic renal failure Abdominal pain Gout flare -1 L normal saline bolus in the emergency room. Patient is complaining of some CHF type symptoms I am not going to continue any hydration here. -Patient is nitrite negative and has a UTI that is apparently resistant to Levaquin and Macrobid, so I feel gram-positive coverage is needed. Because of her renal failure I am giving Zyvox. And because I have concern for sepsis I am going broad-spectrum with cefepime. -Solu-Medrol for gout flare. -I discussed the patient with the hospitalist on-call who is admitting the patient. - Discussed findings and plan with patient. Answered any questions. - All laboratory values were reviewed and interpreted personally by myself, the ER physician - All imaging was reviewed and interpreted personally by myself, the ER physician. - Evaluation and treatment of this problem were appropriate in the emergency setting -I spent a total of >35 minutes of critical care time managing the patient, independent of any other practitioner. -The time involved in the performance of separately reportable procedures was not counted towards critical care time. 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
--- NOTE | 2023-12-13 10:58 | PC.PHAR ---
pt states she takes care of her own medications-pt states she was on macrobid 100mg bid filled 12/08/[address] changed to levaquin 500mg daily filled on 12/11/23-states didnt take any meds today-pt states took a one time dose of colchicine on 12/08/23-
[2023-12-13 11:17] LABS: Basophils % 0.1 %; Eosinophils # 0.1 10^3/uL (0.0-0.8); Eosinophils % 0.4 %; Hematocrit 31.4 % (36-47); Lymphocytes # 0.8 10^3/uL (0.8-4.8); Lymphocytes % 5.9 %; Mean Corpuscular HGB Conc 34.4 g/dL (30-55); Mean Corpuscular Hemoglobin 33.3 pg (27-33); Mean Corpuscular Volume 96.9 fl (85-98); Mean Platelet Volume 12.2 fL (7.4-10.4); Monocytes # 0.8 10^3/uL (0.2-0.9); Neutrophils # 11.72 10^3/uL (1.8-7.7); Neutrophils % 87.1 %; Nucleated Red Blood Cells % 0 %; Platelet Count 41 10^3/cmm (157-399); Red Blood Count 3.24 10^6/uL (3.85-5.65); Red Cell Distribution Width 11.3 % (12.1-15.1); White Blood Count 13.48 10^3/uL (3.29-11.43)
[2023-12-13 11:36] LABS: Alanine Aminotransferase 7 U/L (0-33); Albumin Level 3.3 g/dL (3.5-5.2); Alkaline Phosphatase 83 U/L (35-105); Anion Gap 21.1 (5-19); Aspartate Amino Transferase 10 U/L (0-32); Blood Urea Nitrogen 56 mg/dL (8-23); C Reactive Protein 120.8 mg/L (0.0-4.9); Calcium 9.5 mg/dL (8.5-10.5); Carbon Dioxide 14 mmol/L (22-29); Chloride 99 mmol/L (98-107); Globulin 4.1 g/dL (1.3-4.6); Glucose 119 mg/dL (65-115); Osmolality Calculated 285 mOsm/kg (285-295); Potassium 5.1 mmol/L (3.5-5.1); Sodium 129 mmol/L (136-145); Total Bilirubin 0.5 mg/dL (0.15-1.2); Total Protein 7.4 g/dL (6.6-8.7)
[2023-12-13 11:37] LABS: Lactic Sepsis W/Reflex 0.9 mmol/L (0.5-2.2)
[2023-12-13 11:38] LABS: Creatinine Clr Calc Pharmacy 10.6037
[2023-12-13 11:45] LABS: Add Urine Culture? Yes; Bacteria Urine 1+ /hpf; Bilirubin Urine Neg (Negative); Blood Urine 2+ (Negative); Glucose Urine UA Norm (Normal); Ketones Urine Negative (Negative); Leukocyte Esterase Urine 2+ (Negative); Nitrate Urine Negative (Negative); Protein Urine Neg (Negative); Specific Gravity, Urine 1.005 (1.005-1.030); Squamous Epithelial Cell Urine 0-4 /hpf (0-5); Urine Appearance Hazy (CLEAR); Urine Color Straw (Yellow); Urobilinogen Urine Norm (Negative); WBC Urine TOO NUMEROUS TO CNT /hpf (0-5); pH Urine 6 (5-7)
[2023-12-13] MEDS: sodium chloride 0.9% 1,000 ML 999 ML IV (12:29)
[2023-12-13] MEDS: cefepime 2,000 MG in sodium chloride 0.9% (plus) 50 ML 100 MG IV (12:31)
--- NOTE | 2023-12-13 13:09 | CTR_ITS ---
PROCEDURE INFORMATION: Exam: CT Abdomen And Pelvis Without Contrast Exam date and time: 12/13/2023 1:19 PM Age: 78 years old Clinical indication: Abdominal pain; Generalized TECHNIQUE: Imaging protocol: Computed tomography of the abdomen and pelvis without contrast. Radiation optimization: All CT scans at this facility use at least one of these dose optimization techniques: automated exposure control; mA and/or kV adjustment per patient size (includes targeted exams where dose is matched to clinical indication); or iterative reconstruction. COMPARISON: CR XR chest 2V* [id number] 11/26/2021 1:37 PM RADIATION DOSE METRICS: Total DLP (mGy-cm): 832.86 FINDINGS: Lungs: Minimal bibasilar atelectasis. Pleural spaces: Trace left pleural effusion. Diaphragm: Small hiatal hernia. Liver: Unremarkable. No discrete mass. Gallbladder and bile ducts: No calcified gallstones or biliary dilation identified. Pancreas: Unremarkable with no suspicious mass. No ductal dilation. Spleen: The spleen is not enlarged. No suspicious mass is noted. Adrenal glands: Normal. No mass. Kidneys and ureters: Bilateral perinephric fat stranding, which is nonspecific and may be acute or chronic. No focal mass or hydronephrosis. Stomach and bowel: No small bowel obstruction, abscess or free air. The colon is rather fecal filled. Moderate sigmoid diverticulosis. Appendix: No evidence of appendicitis. Intraperitoneal space: No abscess or free air. Minimal pelvic free fluid. Vasculature: Advanced diffuse vascular calcification noted. Small pelvic phleboliths. Lymph nodes: No enlarged lymph nodes. Urinary bladder: Unremarkable as visualized. Reproductive: Unremarkable as visualized. Bones/joints: Advanced spine DJD. Soft tissues: Tiny fat umbilical hernia. Question minimal anasarca. CT/CT abdomen pelvis wo con [id number] IMPRESSION: 1. No small bowel obstruction, abscess or free air. 2. Moderate sigmoid diverticulosis. No strong evidence for diverticulitis. 3. There is slight 3rd spacing of fluid present with perinephric fat stranding, trace left effusion, and trace pelvic free fluid. 4. Severe atherosclerosis and other chronic findings above.
[2023-12-13] MEDS: linezolid premix 600 MG/300 ML PREMIX 300 MG IV (13:57)
[2023-12-13] MEDS: morphine 4 mg/mL SDV 1 mL IVP (14:46)
[2023-12-13] MEDS: ondansetron 2 mg/ML SDV 2 mL 4 MG IVP (14:46)
[2023-12-13] MEDS: methylPREDNISolone sod succ 125 mg/2 mL INJ IVP (15:33)
--- NOTE | 2023-12-13 15:41 | P.HP_ITS ---
Providers/Chief Complaint 2 Primary Care Provider: Jessie Villalpando MD Chief Complaint: right side pain, feet pain, nausea History of Present Illness Hetal Maldonado is a 78 year old female with history of hypertension COPD gout hypothyroidism stage III CKD CHF GERD dyslipidemia obstructive sleep apnea presented with complaint of bilateral foot pain and left flank pain since 2 to 3 weeks. She was diagnosed with acute gout and UTI as an outpatient. She was started on p.o. allopurinol for acute gout, and Macrobid for UTI which she took only for a day, later she was switched to p.o. Levaquin of which she took only 3 doses. She now presented with worsening abdominal pain and foot/toe pain. She describes left flank pain as 6-7/10, in the left costovertebral angle, radiating to groin, crampy, no aggravating or relieving factors. She reports associated symptoms of loss of appetite and nausea for the last few days but no fever chest pain cough cold vomiting or diarrhea. The toe foot pain started 3 weeks ago and has been gradually progressing, associated with restriction of movements and edema in bilateral feet. She states her uric acid was found to be 10 as an outpatient, her baseline creatinine has been around 1.3-1.4. In the ER she was found to have leukocytosis of 13.4 with left shift hemoglobin of 10.8 platelets 41 BUN/creatinine 56/4.5 CRP 120 UA showed 2+ blood 2+ leukocyte Estrace WBCs too numerous to count She received 1 dose of Zyvox and cefepime in the ER and was given Solu-Medrol 125 mg x 1 dose ECHO 05/23 CONCLUSIONS 1. Normal left ventricular size, systolic function and wall thickness, with no regional wall motion abnormalities. Left ventricular ejection fraction is estimated at 70 %. Grade II diastolic dysfunction, moderately elevated filling pressures. 2. [id number] aortic valve regurgitation. 3. Moderate tricuspid valve regurgitation. 4. When compared to study dated 10/25/2020, there is aortic and tricuspid valve regurgitation. Review of Systems 2 General: Reports: 10 or more systems reviewed and unremarkable except in HPI and below Medications/Allergies Home Medications Medication Instructions Recorded Confirmed Last Taken Type Night Splint to the right #1 ea 06/12/21 12/13/23 Unknown Rx Custom Molded Orthotics #1 ea 09/30/21 12/13/23 Unknown Rx amlodipine 10 mg tablet 10 mg PO DAILY #100 tabs 10/29/22 12/13/23 12/12/23 Rx carvedilol 12.5 mg tablet 12.5 mg PO BID #180 tabs 03/11/23 12/13/23 12/12/23 Rx albuterol sulfate 2.5 mg/3 mL 2.5 mg (3 mL) inhalation QID PRN 04/20/23 12/13/23 Unknown Rx (0.083 %) solution for nebulization shortness of breath or wheezing #90 mL albuterol sulfate 90 mcg/actuation 2 inh inhalation Q4H PRN shortness 04/20/23 12/13/23 Unknown Rx aerosol inhaler of breath or wheezing #18 grams pantoprazole 40 mg tablet,delayed 40 mg PO BID 90 days #180 tabs 10/28/23 12/13/23 12/12/23 Rx release (Protonix) furosemide 20 mg tablet (Lasix) 20 mg PO DAILY PRN edema #30 tabs 10/30/23 12/13/23 Unknown Rx allopurinol 100 mg tablet 100 mg PO DAILY 90 days #90 tabs 12/09/23 12/13/23 12/12/23 Rx levofloxacin 500 mg tablet 500 mg PO DAILY 5 days #5 tabs 12/11/23 12/13/23 12/12/23 Rx cholecalciferol (vitamin D3) 125 10,000 unit PO QAM 12/13/23 12/13/23 Unknown History mcg (5,000 unit) tablet (Vitamin D3) levothyroxine 25 mcg tablet 25 mcg PO QAM 12/13/23 12/13/23 12/12/23 History rosuvastatin 10 mg tablet 10 mg PO DAILY 12/13/23 12/13/23 12/12/23 History spironolactone 100 mg tablet 100 mg PO DAILY 12/13/23 12/13/23 12/12/23 History Allergies Allergy/AdvReac Type Severity Reaction Status Date / Time losartan Allergy doesn't Verified 11/04/23 09:30 remember naproxen [From Naprosyn] Allergy Unknown Verified 11/04/23 09:30 Penicillins Allergy Unknown Verified 11/04/23 09:30 Sulfa (Sulfonamide Allergy unk Verified 11/04/23 09:30 Antibiotics) lisinopril AdvReac cough, Verified 11/04/23 09:30 diarrhea PFSH Acute 2 PFSH: Medical History History of skin cancer Hypertension Gastroesophageal reflux disease Family History Mother Anesthesia complication CAD (coronary artery disease) Father Cancer Lung disease Grandmother CAD (coronary artery disease) Diabetes Denies family history of Clotting disorder Dementia Chronic kidney disease (CKD) Suicide Bleeding disorder Stroke Social History Smoking and tobacco/nicotine status: never used tobacco/nicotine Alcohol intake: never Substance/Drug Use: never Marital status: / Current occupational status: retired Vitals/I&O/Wt Last Vital Signs Temp 98.8 F 12/13/23 10:09 Pulse 70 12/13/23 14:00 Resp 17 12/13/23 14:46 BP 141/52 12/13/23 14:00 Pulse Ox 96 12/13/23 14:00 O2 Del Method Room Air 12/13/23 14:00 12/13/23 12/13/23 12/13/23 06:59 14:59 22:59 Intake Total 1050 / 1050 Balance 1050 / 1050 Weight last 48 hrs Weight 89.811 kg Physical Exam 2 Narrative: She is alert awake oriented x 3 in moderate distress due to left lumbar pain and bilateral feet pain Chest clear to auscultation bilaterally Cardiovascular normal heart sounds no murmurs Abdomen soft nontender nondistended normal bowel sounds, left CVA tenderness present Extremities bilateral 1+ pitting edema present, bilateral swelling erythema tenderness and warmth present at base of great toes. Restriction of movements present. Data 12/13/23 10:40 12/13/23 10:40 Micro: Microbiology 12/13/23 10:45 Blood Culture - Preliminary Blood SPECIMEN COLLECTED 12/13/23 10:40 Blood Culture - Preliminary Blood SPECIMEN COLLECTED CT Abd/Pel: Radiologist's impression: IMPRESSION: 1. No small bowel obstruction, abscess or free air. 2. Moderate sigmoid diverticulosis. No strong evidence for diverticulitis. 3. There is slight 3rd spacing of fluid present with perinephric fat stranding, trace left effusion, and trace pelvic free fluid. 4. Severe atherosclerosis A&P Assessment and plan (1) Pyelonephritis, acute: (2) Urinary tract infection: (3) Gout flare: (4) Acute on chronic kidney failure: (5) Elevated blood uric acid level: (6) Foot pain, bilateral: (7) Stage 3b chronic kidney disease (CKD): (8) CHF (congestive heart failure): Qualifiers: Heart failure chronicity: chronic Heart failure type: unspecified Qualified Code(s): I50.9 - Heart failure, unspecified (9) Hypothyroidism: Qualifiers: Hypothyroidism type: acquired Qualified Code(s): E03.9 - Hypothyroidism, unspecified (10) Gastroesophageal reflux disease: Qualifiers: Esophagitis presence: without esophagitis Qualified Code(s): K21.9 - Gastro-esophageal reflux disease without esophagitis (11) Obstructive sleep apnea: (12) Benign essential HTN: (13) Acquired thrombocytopenia: Plan 78 year old female with history of hypertension COPD gout hypothyroidism stage III CKD CHF GERD dyslipidemia obstructive sleep apnea presented with complaint of bilateral foot pain and left flank pain since 2 to 3 weeks. Found to have a uric acid level of 10 and UTI as an outpatient. Was started on allopurinol and Levaquin but with no relief. She presented with worsening left flank pain and foot pain today that is refractory to outpatient oral therapy.. Was found to have leukocytosis with left shift, acute on chronic renal failure and UA consistent with severe UTI. 1. Acute pyelonephritis- Given left lumbar pain radiating into groin , loss of appetite , nausea ,leukocytosis with left shift, and UA consistent with UTI, CT abdomen pelvis showed bilateral perinephric stranding. Received 1 dose of IV cefepime and Zyvox in the ER Will continue IV cefepime 1 g every 8 hours IV vancomycin 1 g every 48 hours. IV fluids normal saline at 100 mL/h. Follow-up blood cultures and urine culture. 2. Acute gout- Will continue with IV Solu-Medrol 60 mg every 8 hours. IV morphine 2 mg every 8 hours as needed for pain control P.o. Percocet 5/325 mg every 6 hours for breakthrough pain Leg elevation and warm compresses to the affected area as needed. Podiatry consult 3. Acute on chronic renal failure- Likely secondary to UTI versus dehydration versus medication induced. Will give IV fluids normal saline at 100 mm/h. Hold home medication Lasix and spironolactone Continue to monitor for now Nephrology consult as needed 4. Thrombocytopenia At baseline no active signs of bleeding, will monitor for now. 5. Cardiac diet 6. DVT prophylaxis with subcutaneous heparin 5000 units every 8 hours 7. GI prophylaxis with IV Pepcid 20 mg twice daily 8. CODE STATUS discussed with the patient, she is full code for now. 9. resume home medications. Attestations 2 Medical Necessity Statement*: She needs continued hospitalization more than 2 midnights for acute pyelonephritis. Acute on chronic renal failure, acute gout and to be treated with IV fluids, IV antibiotics, IV steroids and IV pain medications. Time Spent in Patient Care: 45 minutes Coding Level of Care Code Critical Care >/= 30 minutes Diagnoses Pyelonephritis, acute N10 Urinary tract infection N39.0 Gout flare M10.9 Acute on chronic kidney failure N17.9; N18.9 Elevated blood uric acid level E79.0 Foot pain, bilateral M79.671; M79.672 Stage 3b chronic kidney disease (CKD) N18.32 Chronic congestive heart failure, unspecified heart failure type I50.9 Heart failure chronicity: chronic Heart failure type: unspecified Acquired hypothyroidism E03.9 Hypothyroidism type: acquired Gastroesophageal reflux disease without esophagitis K21.9 Esophagitis presence: without esophagitis Obstructive sleep apnea G47.33 Benign essential HTN I10 Acquired thrombocytopenia D69.6 Time Spent (min) 45
--- NOTE | 2023-12-13 16:37 | XRR_ITS ---
PROCEDURE INFORMATION: Exam: XR Right Foot Exam date and time: 12/13/2023 4:27 PM Age: 78 years old Clinical indication: Patient HX: Bilateral foot pain when bearing weight; Gout; Renal failure TECHNIQUE: Imaging protocol: Radiologic exam of the right foot. Views: 3 or more views. COMPARISON: CR XR foot RT min 3V* [id number] 06/12/2021 1:06 PM FINDINGS: Bones/joints: No acute fracture. Chronic degenerative changes of the 1st MTP joint with marked valgus deformity, unchanged. Significant joint space narrowing along the tarsometatarsal joints in particular of the 1st and 2nd tarsometatarsal joint spaces. Soft tissues: Mild soft tissue swelling overlying 1st MTP joint. No cortical erosions. XR/XR foot RT min 3V* [id number] IMPRESSION: Chronic degenerative changes and osseous valgus deformity are observed in the 1st metatarsophalangeal (MTP) joint. Additionally, there is worsening joint space narrowing along the tarsometatarsal joints, particularly affecting the 1st and 2nd tarsometatarsal joint spaces.
--- NOTE | 2023-12-13 16:37 | XRR_ITS ---
PROCEDURE INFORMATION: Exam: XR Left Foot Exam date and time: 12/13/2023 4:23 PM Age: 78 years old Clinical indication: Patient HX: Bilateral foot pain when bearing weight; Gout; Renal failure TECHNIQUE: Imaging protocol: Radiologic exam of the left foot. Views: 3 or more views. COMPARISON: No relevant prior studies available. FINDINGS: Bones/joints: Chronic degenerative changes and osseous valgus deformity are observed in the 1st metatarsophalangeal (MTP) joint. Additionally, there is worsening joint space narrowing along the tarsometatarsal joints/Lisfranc joints. Soft tissues: Mild soft tissue swelling along the 1st MTP. XR/XR foot LT min 3V* [id number] IMPRESSION: Chronic degenerative changes and osseous valgus deformity are observed in the 1st metatarsophalangeal (MTP) joint. Additionally, there is worsening joint space narrowing along the tarsometatarsal joints/Lisfranc joints.
--- NOTE | 2023-12-13 16:38 | P.CONIM_ITS ---
Providers/Reason For Consult 2 Consulting Physician/Specialty*: Matty Hunter D.P.M. Reason for Consult*: Bilateral foot acute gout Attending Physician: Salma Healy MD Primary Care Provider: Jessie Villalpando MD History of Present Illness History of Present Illness Hetal Maldonado is a 78 year old female admitted to the hospital service for pyelonephritis, acute on chronic CHF and acute gout, has a history of stage IIIa CKD. Insidious onset of pain at the first metatarsal phalange joint left and right foot with red, hot, swollen, painful joint. Review of Systems 2 General: Reports: 10 or more systems reviewed and unremarkable except in HPI and below Const: Denies: fever(s) or chills Eyes: Denies: change in vision Card: Denies: chest pain or palpitations Resp: Denies: dyspnea or productive cough GI: Denies: abdominal pain, nausea or vomiting : Denies: flank pain Musc: Reports: extremity pain, joint pain, joint stiffness, limited range of motion and deformity Skin/Breast: Reports: skin tenderness; Denies: rash Neuro: Reports: difficulty walking; Denies: numbness in extremities, sensory changes or frequent falls Psych: Denies: suicidal ideation Gallito/Lymph: Denies: easy bruising Medications/Allergies Home Medications Medication Instructions Recorded Confirmed Last Taken Type Night Splint to the right #1 ea 06/12/21 12/13/23 Unknown Rx Custom Molded Orthotics #1 ea 09/30/21 12/13/23 Unknown Rx amlodipine 10 mg tablet 10 mg PO DAILY #100 tabs 10/29/22 12/13/23 12/12/23 Rx carvedilol 12.5 mg tablet 12.5 mg PO BID #180 tabs 03/11/23 12/13/23 12/12/23 Rx albuterol sulfate 2.5 mg/3 mL 2.5 mg (3 mL) inhalation QID PRN 04/20/23 12/13/23 Unknown Rx (0.083 %) solution for nebulization shortness of breath or wheezing #90 mL albuterol sulfate 90 mcg/actuation 2 inh inhalation Q4H PRN shortness 04/20/23 12/13/23 Unknown Rx aerosol inhaler of breath or wheezing #18 grams pantoprazole 40 mg tablet,delayed 40 mg PO BID 90 days #180 tabs 10/28/23 12/13/23 12/12/23 Rx release (Protonix) furosemide 20 mg tablet (Lasix) 20 mg PO DAILY PRN edema #30 tabs 10/30/23 12/13/23 Unknown Rx allopurinol 100 mg tablet 100 mg PO DAILY 90 days #90 tabs 12/09/23 12/13/23 12/12/23 Rx levofloxacin 500 mg tablet 500 mg PO DAILY 5 days #5 tabs 12/11/23 12/13/23 12/12/23 Rx cholecalciferol (vitamin D3) 125 10,000 unit PO QAM 12/13/23 12/13/23 Unknown History mcg (5,000 unit) tablet (Vitamin D3) levothyroxine 25 mcg tablet 25 mcg PO QAM 12/13/23 12/13/23 12/12/23 History rosuvastatin 10 mg tablet 10 mg PO DAILY 12/13/23 12/13/23 12/12/23 History spironolactone 100 mg tablet 100 mg PO DAILY 12/13/23 12/13/23 12/12/23 History Allergies Allergy/AdvReac Type Severity Reaction Status Date / Time losartan Allergy doesn't Verified 11/04/23 09:30 remember naproxen [From Naprosyn] Allergy Unknown Verified 11/04/23 09:30 Penicillins Allergy Unknown Verified 11/04/23 09:30 Sulfa (Sulfonamide Allergy unk Verified 11/04/23 09:30 Antibiotics) lisinopril AdvReac cough, Verified 11/04/23 09:30 diarrhea PFSH Acute 2 PFSH: Medical History History of skin cancer Hypertension Gastroesophageal reflux disease Family History Mother Anesthesia complication CAD (coronary artery disease) Father Cancer Lung disease Grandmother CAD (coronary artery disease) Diabetes Denies family history of Clotting disorder Dementia Chronic kidney disease (CKD) Suicide Bleeding disorder Stroke Social History Smoking and tobacco/nicotine status: never used tobacco/nicotine Alcohol intake: never Substance/Drug Use: never Marital status: / Current occupational status: retired Vitals/I&O/Wt Last Vital Signs Temp 98.8 F 12/13/23 10:09 Pulse 69 12/13/23 15:30 Resp 17 12/13/23 14:46 BP 125/51 12/13/23 15:30 Pulse Ox 99 12/13/23 15:30 O2 Del Method Room Air 12/13/23 15:30 12/13/23 12/13/23 12/13/23 06:59 14:59 22:59 Intake Total 1050 / 1050 300 / 1350 Balance 1050 / 1050 300 / 1350 Weight last 48 hrs Weight 198 lb Physical Exam 2 Narrative: GENERAL: Patient is alert and oriented ?3 and in no acute distress. The following is a focused bilateral lower extremity exam. VASCULAR: Dorsalis pedis palpable bilaterally. Posterior tibial arteries palpable. Capillary refill time less than 3 seconds to the distal hallux bilaterally. Calf is supple and nontender proximally and distally. Edema of first metatarsal phalangeal joint right greater than left. Mild increase in warmth at first metatarsal phalangeal joint left and right. NEUROLOGICAL: Protective sensation intact to light touch. DERMATOLOGICAL: Localized erythema at the dorsal medial aspect of the left and right first metatarsal phalangeal joint. No open wounds to the bilateral lower extremity. No draining sinuses, no abrasions or lacerations, no ecchymosis to the bilateral lower extremity. MUSCULOSKELETAL: Tenderness to palpation at bilateral first metatarsal phalangeal joint. Bilateral bunion, bilateral hammertoes. Muscle strength +5 in all 3 planes bilateral foot and ankle. No crepitus with soft tissue palpation bilateral foot. Data 12/14/23 04:21 12/14/23 04:21 Micro: Microbiology 12/13/23 10:45 Blood Culture - Preliminary Blood SPECIMEN COLLECTED 12/13/23 10:40 Blood Culture - Preliminary Blood SPECIMEN COLLECTED A&P Assessment and plan (1) Acute on chronic diastolic (congestive) heart failure: (2) Stage 3b chronic kidney disease (CKD): (3) Acute on chronic kidney failure: Qualifiers: Acute renal failure type: unspecified Chronic kidney disease stage: u nspecified stage Qualified Code(s): N17.9 - Acute kidney failure, unspecified; N18.9 - Chronic kidney disease, unspecified (4) Elevated blood uric acid level: (5) Podagra: Plan 78-year-old female with acute gout attack bilateral first metatarsal phalangeal joint. Has responded well to Solu-Medrol -Clinical and laboratory findings strongly suggest acute gout attack bilateral first metatarsal phalangeal joint. Uric acid 10.0 on 12/08/2023. She has responded well to Solu-Medrol, states that her pain is subsided, redness is also subsided. Very low suspicion for infectious process. Would hold on joint arthrocentesis at this time given her positive response to steroids and low suspicion of infectious. Gout attack was likely precipitated by poor kidney function. Nephrology has already been consulted. Given the complexity of her comorbidities with renal failure I recommended rheumatology consultation for long-term preventative management of gout. Coding Level of Care Code Acute Code for [facility] Fwd Diagnoses Acute on chronic diastolic (congestive) heart failure I50.33 Stage 3b chronic kidney disease (CKD) N18.32 Acute renal failure superimposed on chronic kidney disease, unspecified acute renal failure type, unspecified CKD stage N17.9; N18.9 Acute renal failure type: unspecified Chronic kidney disease stage: unspecified stage Elevated blood uric acid level E79.0 Podagra M10.9
[2023-12-13] MEDS: vancomycin 1,000 MG in sodium chloride 0.9% 250 ML 250 MG IV (16:57)
[2023-12-13] MEDS: famotidine 20 mg/2 mL INJ IVP (16:57)
[2023-12-13] MEDS: sodium chloride 0.9% 1,000 ML 100 ML IV (16:57)
[2023-12-13] MEDS: heparin 5,000 unit/mL INJ 1 mL 5000 UNIT SUBCUT ×2 (16:57→23:43)
[2023-12-13] MEDS: carvedilol 12.5 mg Tablet PO (18:02)
[2023-12-13] MEDS: morphine 4 mg/mL SDV 1 mL 2 MG IVP (18:02)
[2023-12-13] MEDS: atorvastatin 40 mg Tablet 10 MG PO (20:13)
[2023-12-13] MEDS: methylPREDNISolone sod succ 125 mg/2 mL INJ 60 MG IVP (22:29)
[2023-12-13] MEDS: cefepime 1,000 MG in sodium chloride 0.9% (plus) 50 ML 100 MG IV (23:41)
[2023-12-14] MEDS: sodium chloride 0.9% 1,000 ML 100 ML IV (03:08)
[2023-12-14] MEDS: famotidine 20 mg/2 mL INJ IVP ×2 (03:32→15:34)
[2023-12-14 03:34] VITALS: BP 107/59; PULSE 61; RESP 17; TEMP 36.2; O2SAT 95
[2023-12-14 03:35] VITALS: BMI 54.3
[2023-12-14 04:37] LABS: Hematocrit 31.1 % (36-47); Lymphocytes # 0.5 10^3/uL (0.8-4.8); Lymphocytes % 8.8 %; Mean Corpuscular HGB Conc 31.8 g/dL (30-55); Mean Corpuscular Hemoglobin 32.5 pg (27-33); Mean Platelet Volume 10.4 fL (7.4-10.4); Monocytes # 0.1 10^3/uL (0.2-0.9); Monocytes % 1.1 %; Neutrophils # 5.49 10^3/uL (1.8-7.7); Neutrophils % 89.6 %; Nucleated Red Blood Cells % 0 %; Platelet Count 250 10^3/cmm (157-399); Red Blood Count 3.05 10^6/uL (3.85-5.65); Red Cell Distribution Width 11.7 % (12.1-15.1); White Blood Count 6.13 10^3/uL (3.29-11.43)
[2023-12-14 04:59] LABS: Blood Urea Nitrogen 60 mg/dL (8-23); Calcium 9.1 mg/dL (8.5-10.5); Carbon Dioxide 13 mmol/L (22-29); Chloride 105 mmol/L (98-107); Creatinine Clr Calc Pharmacy 14.9151; Glucose 192 mg/dL (65-115); Magnesium 1.9 mg/dL (1.7-2.3); Osmolality Calculated 292 mOsm/kg (285-295); Sodium 130 mmol/L (136-145)
[2023-12-14 05:01] LABS: Anion Gap 17.7 (5-19); Potassium 5.7 mmol/L (3.5-5.1)
[2023-12-14] MEDS: methylPREDNISolone sod succ 125 mg/2 mL INJ 60 MG IVP ×3 (06:34→23:12)
[2023-12-14] MEDS: levothyroxine 25 mcg Tablet PO (06:34)
[2023-12-14 07:29] VITALS: BP 109/54; PULSE 66; RESP 18; TEMP 36.3; O2SAT 98
[2023-12-14] MEDS: amlodipine 10 mg Tablet PO (07:56)
[2023-12-14] MEDS: heparin 5,000 unit/mL INJ 1 mL 5000 UNIT SUBCUT ×3 (07:56→23:50)
[2023-12-14] MEDS: carvedilol 12.5 mg Tablet PO ×2 (07:56→15:35)
[2023-12-14 08:56] VITALS: PULSE 63; RESP 16; O2SAT 98
--- NOTE | 2023-12-14 10:56 | PC.CHAP ---
Pastoral Care Encounter/Spiritual Assessment Type of Contact [] Declined band attacher visit [] Patient/Family/Request visit [] Outpatient visit [] Follow-up visit [] Physician referral [] Code/Alert [x] Routine visit [] Staff referral [] Actively dying [] Patient sleeping [] Family support [] [x] Out of room [] Palliative care [] [] Receiving care in room [] Pre-surgical visit [] Trauma [] Long length of stay [] ICU visit [] Other: Relational/Emotional Strength [] Patient feels connected with others/family/visitors/staff [] Distress [] Loneliness/isolation [] Abandonment Spirituality of Patient [] Person of Hoa [] Attends Jain of their Hoa [] Believes in Prayer [] Reads Bible or Orthodox materials [] There are Spiritual issues to be addressed Fabrication And Layout Craftsman Interventions [] Prayer [] Active listening [] Non-anxious presence [] Spiritual/emotional support [] Crisis/trauma care [] Spiritual counseling [] Bereavement support [] Provided bereavement packet [] Provided Bible/devotional materials [] Provided toy/stuffed animal, coloring book to patient or family member [] Provided Communion [] Anointing/[place] [] Salvation [] Completed spiritual assessment [] Other: Impact on Illness or Injury [] Angry [] Fearful [] Anxious [] Often cries [] Exhaustion [] Unable to work [] Unable to attend anabaptist [] Unable to walk/stand [] Unable to read [] Unable to drive [] Unable to eat/drink [] Unable to sleep [] Unable to be with family [] Patient intubated [] Other: Summary Time spent with patient
--- NOTE | 2023-12-14 11:32 | XR_ITS ---
WS: [id number] Exam: XR chest 1V portable [id number] Date/Time of Exam: 12/14/2023 11:32 AM Reason For Exam: sob Comparison 11/26/2021. The lungs are clear and fully expanded. Normal cardiomediastinal silhouette. No pleural effusions. Mo derate DJD of the RIGHT shoulder. IMPRESSION: 1. No acute cardiopulmonary finding.
[2023-12-14 11:40] VITALS: BP 107/53; PULSE 67; RESP 18; TEMP 36.3; O2SAT 96
--- NOTE | 2023-12-14 11:46 | P.CONIM_ITS ---
Providers/Reason For Consult 2 Consulting Physician/Specialty*: kommana/nephrology Reason for Consult*: DWAYNE on ckd Attending Physician: Salma Healy MD Primary Care Provider: Jessie Villalpando MD History of Present Illness History of Present Illness Hetal Maldonado is a 78 year old female patient is a 78-year-old female with past medical history of hypertension COPD sleep apnea chronic kidney disease stage III with a baseline creatinine in the mid 1 range, dyslipidemia, GERD, history of congestive cardiac failure presented to the emergency department due to left flank pain and bilateral foot pain. Patient was recently found to have acute gout flare and was treated with allopurinol. Patient also took [id number] Aleve as as needed. In the emergency department patient was found to have DWAYNE with a creatinine of 4.5. Patient is currently receiving steroids for acute gout flare. She is currently on room air, denies any complaints. Currently on normal saline at 100 cc an hour. Medications/Allergies Home Medications Medication Instructions Recorded Confirmed Last Taken Type Night Splint to the right #1 ea 06/12/21 12/13/23 Unknown Rx Custom Molded Orthotics #1 ea 09/30/21 12/13/23 Unknown Rx amlodipine 10 mg tablet 10 mg PO DAILY #100 tabs 10/29/22 12/13/23 12/12/23 Rx carvedilol 12.5 mg tablet 12.5 mg PO BID #180 tabs 03/11/23 12/13/23 12/12/23 Rx albuterol sulfate 2.5 mg/3 mL 2.5 mg (3 mL) inhalation QID PRN 04/20/23 12/13/23 Unknown Rx (0.083 %) solution for nebulization shortness of breath or wheezing #90 mL albuterol sulfate 90 mcg/actuation 2 inh inhalation Q4H PRN shortness 04/20/23 12/13/23 Unknown Rx aerosol inhaler of breath or wheezing #18 grams pantoprazole 40 mg tablet,delayed 40 mg PO BID 90 days #180 tabs 10/28/23 12/13/23 12/12/23 Rx release (Protonix) furosemide 20 mg tablet (Lasix) 20 mg PO DAILY PRN edema #30 tabs 10/30/23 12/13/23 Unknown Rx allopurinol 100 mg tablet 100 mg PO DAILY 90 days #90 tabs 12/09/23 12/13/23 12/12/23 Rx levofloxacin 500 mg tablet 500 mg PO DAILY 5 days #5 tabs 12/11/23 12/13/23 12/12/23 Rx cholecalciferol (vitamin D3) 125 10,000 unit PO QAM 12/13/23 12/13/23 Unknown History mcg (5,000 unit) tablet (Vitamin D3) levothyroxine 25 mcg tablet 25 mcg PO QAM 12/13/23 12/13/23 12/12/23 History rosuvastatin 10 mg tablet 10 mg PO DAILY 12/13/23 12/13/23 12/12/23 History spironolactone 100 mg tablet 100 mg PO DAILY 12/13/23 12/13/23 12/12/23 History Allergies Allergy/AdvReac Type Severity Reaction Status Date / Time losartan Allergy doesn't Verified 11/04/23 09:30 remember naproxen [From Naprosyn] Allergy Unknown Verified 11/04/23 09:30 Penicillins Allergy Unknown Verified 11/04/23 09:30 Sulfa (Sulfonamide Allergy unk Verified 11/04/23 09:30 Antibiotics) lisinopril AdvReac cough, Verified 11/04/23 09:30 diarrhea Current Medications Generic Name Dose Route Start Last Admin Trade Name Freq PRN Reason Stop Dose Admin Amlodipine Besylate 10 mg 12/14/23 09:00 12/14/23 07:56 Amlodipine 10 Mg Tablet PO 10 mg DAILY STEPHANE Administration Atorvastatin Calcium 10 mg 12/13/23 21:00 12/13/23 20:13 Atorvastatin 40 Mg Tablet PO 10 mg BEDTIME STEPHANE Administration Carvedilol 12.5 mg 12/13/23 18:00 12/14/23 07:56 Carvedilol 12.5 Mg Tablet PO 12.5 mg BID STEPHANE Administration Famotidine 20 mg 12/13/23 16:30 12/14/23 03:32 Famotidine 20 Mg/2 Ml Inj IVP 20 mg Q12H STEPHANE Administration Heparin Sodium (Porcine) 5,000 unit 12/13/23 16:30 12/14/23 07:56 Heparin 5,000 Unit/Ml Inj 1 Ml SUBCUT 5,000 unit Q8H STEPHANE Administration Cefepime HCl 1,000 mg/ Sodium 50 mls @ 100 mls/hr 12/14/23 00:30 12/14/23 00:35 Chloride IV Infused Q12H STEPHANE Infusion Protocol Levothyroxine Sodium 25 mcg 12/14/23 06:00 12/14/23 06:34 Levothyroxine 25 Mcg Tablet PO 25 mcg QAM STEPHANE Administration Methylprednisolone Sodium Succinate 60 mg 12/13/23 23:30 12/14/23 06:34 Methylprednisolone Sod Succ 125 Mg/2 Ml Inj IVP 60 mg Q8H STEPHANE Administration Morphine Sulfate 2 mg 12/13/23 16:21 12/13/23 18:02 Morphine 4 Mg/Ml Sdv 1 Ml IVP 2 mg Q4H PRN Administration SEVERE PAIN PFSH Acute 2 PFSH: Medical History History of skin cancer Hypertension Gastroesophageal reflux disease Family History Mother Anesthesia complication CAD (coronary artery disease) Father Cancer Lung disease Grandmother CAD (coronary artery disease) Diabetes Denies family history of Clotting disorder Dementia Chronic kidney disease (CKD) Suicide Bleeding disorder Stroke Social History Smoking and tobacco/nicotine status: never used tobacco/nicotine Alcohol intake: never Substance/Drug Use: never Marital status: / Current occupational status: retired Vitals/I&O/Wt Last Vital Signs Temp 97.3 F L 12/14/23 11:40 Pulse 67 12/14/23 11:40 Resp 18 12/14/23 11:40 BP 107/53 12/14/23 11:40 Pulse Ox 96 12/14/23 11:40 O2 Del Method Room Air 12/14/23 11:40 12/13/23 12/14/23 12/14/23 22:59 06:59 14:59 Intake Total 550 / 1600 1170 / 2770 853.333 / 853.333 Output Total 200 / 200 700 / 900 Balance 350 / 1400 470 / 1870 853.333 / 853.333 Weight last 48 hrs Weight 94.755 kg Weight 89.811 kg Weight 89.811 kg Physical Exam 2 Urinary Catheter Management: [place]: Cath Placed During This Visit: yes Reason for Continuing Indwelling Catheter: Other Urinary Catheter Date of Insertion: 12/13/23 Urinary Catheter Time of Insertion: 17:16 Data 12/14/23 04:21 12/14/23 04:21 Micro: Microbiology 12/13/23 10:45 Blood Culture - Preliminary Blood NEGATIVE TO DATE 12/13/23 10:40 Blood Culture - Preliminary Blood NEGATIVE TO DATE 12/13/23 11:02 Urine Culture - Preliminary Urine,Clean Catch A&P Assessment and plan (1) Acute on chronic kidney failure: Qualifiers: Acute renal failure type: unspecified Chronic kidney disease stage: u nspecified stage Qualified Code(s): N17.9 - Acute kidney failure, unspecified; N18.9 - Chronic kidney disease, unspecified Plan 1. Acute on chronic kidney disease: Baseline creatinine was in the mid 1 range now has an DWAYNE with a creatinine of 4.5. No hydronephrosis on CT. Most likely etiology multifactorial,-prerenal with decreased p.o. intake, NSAID use. - switched IVFs to bicarb drip - no acute indication for dialysis, repeat BMP this afternoon -Check chest x-ray, will give a dose of IV Lasix today -avoid nephrotoxins and IV contrast studies, check renal ultrasound, check urine electrolytes 2. Hyponatremia: Placed on low K diet, gave 1 dose of Lasix, repeat BMP pending 3. Metabolic acidosis: Secondary to DWAYNE, on bicarbonate drip, monitor 4. History of CHF, check chest x-ray and monitor Patient evaluated using audiovisual cart. Time spent 40 minutes. Consult Attestations 2 Medical Necessity Statement: per mercedez Coding Level of Care Code Acute Code for [facility] Fwd Diagnoses Acute renal failure superimposed on chronic kidney disease, unspecified acute renal failure type, unspecified CKD stage N17.9; N18.9 Acute renal failure type: unspecified Chronic kidney disease stage: unspecified stage
[2023-12-14] MEDS: FUROsemide 10 mg/mL SDV 4mL 40 MG IVP ×2 (11:59→18:27)
[2023-12-14] MEDS: sodium bicarbonate 150 MEQ in dextrose 5% 1,000 ML 100 MEQ IV (13:45)
[2023-12-14] MEDS: cefepime 1,000 MG in sodium chloride 0.9% (plus) 50 ML 100 MG IV ×2 (13:45→23:49)
[2023-12-14 16:00] VITALS: BP 125/67; PULSE 66; RESP 19; TEMP 36.7; O2SAT 96
--- NOTE | 2023-12-14 16:19 | P.PN_ITS ---
Subjective 2 Subjective: No acute overnight events noted. She still complaining of bilateral foot and first metatarsal joint pain but improved as compared to admission. Reports that the left flank pain resolved. She required only 1 dose of IV pain medication in the last 12 hours. Denies any complaint of nausea or vomiting. Medications: Reviewed: Yes Vitals/I&O/Wt Last Vital Signs Temp 97.3 F L 12/14/23 11:40 Pulse 67 12/14/23 11:40 Resp 18 12/14/23 11:40 BP 107/53 12/14/23 11:40 Pulse Ox 96 12/14/23 11:40 O2 Del Method Room Air 12/14/23 11:40 12/14/23 12/14/23 12/14/23 06:59 14:59 22:59 Intake Total 1170 / 2770 903.333 / 903.333 Output Total 700 / 900 Balance 470 / 1870 903.333 / 903.333 Weight last 48 hrs Weight 94.755 kg Weight 89.811 kg Weight 89.811 kg Physical Exam 2 Narrative: She is alert awake oriented x 3 Chest clear to auscultation bilaterally Cardiovascular normal heart sounds no murmurs Abdomen soft nontender nondistended normal bowel sounds Extremities -minimal edema seen, improved as compared to on admission, bilateral swelling erythema tenderness and warmth present at base of great toes but improved since admission. Restriction of movements present. Urinary Catheter Management: Dahl: Cath Placed During This Visit: yes Reason for Continuing Indwelling Catheter: Other Urinary Catheter Date of Insertion: 12/13/23 Urinary Catheter Time of Insertion: 17:16 Data 12/14/23 04:21 12/14/23 04:21 Micro: Microbiology 12/13/23 10:45 Blood Culture - Preliminary Blood NEGATIVE TO DATE 12/13/23 10:40 Blood Culture - Preliminary Blood NEGATIVE TO DATE 12/13/23 11:02 Urine Culture - Preliminary Urine,Clean Catch A&P Assessment and plan (1) Pyelonephritis, acute: (2) Urinary tract infection: (3) Gout flare: (4) Acute on chronic kidney failure: Qualifiers: Acute renal failure type: unspecified Chronic kidney disease stage: u nspecified stage Qualified Code(s): N17.9 - Acute kidney failure, unspecified; N18.9 - Chronic kidney disease, unspecified (5) Elevated blood uric acid level: (6) Foot pain, bilateral: (7) Stage 3b chronic kidney disease (CKD): (8) CHF (congestive heart failure): Qualifiers: Heart failure type: unspecified Heart failure chronicity: chronic Qualified Code(s): I50.9 - Heart failure, unspecified (9) Hypothyroidism: Qualifiers: Hypothyroidism type: acquired Qualified Code(s): E03.9 - Hypothyroidism, unspecified (10) Gastroesophageal reflux disease: Qualifiers: Esophagitis presence: without esophagitis Qualified Code(s): K21.9 - Gastro-esophageal reflux disease without esophagitis (11) Obstructive sleep apnea: (12) Benign essential HTN: (13) Acquired thrombocytopenia: Plan 78 year old female with history of hypertension COPD gout hypothyroidism stage III CKD CHF GERD dyslipidemia obstructive sleep apnea presented with complaint of bilateral foot pain and left flank pain since 2 to 3 weeks. Found to have a uric acid level of 10 and UTI as an outpatient. Was started on allopurinol and Levaquin but with no relief. She presented with worsening left flank pain and foot pain today that is refractory to outpatient oral therapy.. Was found to have leukocytosis with left shift, acute on chronic renal failure and UA consistent with severe UTI. 1. Acute pyelonephritis- left flank pain resolved Will continue IV cefepime 1 g every 8 hours IV vancomycin 1 g every 48 hours. IV fluids normal saline at 100 mL/h. Follow-up blood cultures and urine culture. 2. Acute gout- likely secondary to hyperuricemia ( uric acid 10)secondary to CKD Will continue with IV Solu-Medrol 60 mg every 8 hours. IV morphine 2 mg every 8 hours as needed for pain control P.o. Percocet 5/325 mg every 6 hours for breakthrough pain Leg elevation and warm compresses to the affected area as needed. Podiatry consult appreciated. No further recommendations for arthrocentesis in abscence of signs of infection, and adviced to be followed up by naphtha washing system operator for elevated uric acid levels. 3. Acute on chronic renal failure- Likely secondary to UTI versus dehydration versus medication induced. Will give IV fluids normal saline at 100 mm/h. Hold home medication Lasix and spironolactone Continue to monitor for now Nephrology consult appreciated, received iv [id number] x1, sodium [id number] dose insertion of dahl catheter. 4. Thrombocytopenia At baseline no active signs of bleeding, will monitor for now. 5. Cardiac diet 6. DVT prophylaxis with subcutaneous heparin 5000 units every 8 hours 7. GI prophylaxis with IV Pepcid 20 mg twice daily 8. CODE STATUS discussed with the patient, she is full code for now. 9. resume home medications. Attestations 2 Medical Necessity Statement*: She needs continued hospitalization more than 2 midnights for acute pyelonephritis. Acute on chronic renal failure, acute gout and to be treated with IV fluids, IV antibiotics, IV steroids and IV pain medications. Time Spent in Patient Care: 20 minutes Coding Level of Care Code Acute Code for [facility] Fwd Diagnoses Pyelonephritis, acute N10 Urinary tract infection N39.0 Gout flare M10.9 Acute renal failure superimposed on chronic kidney disease, unspecified acute renal failure type, unspecified CKD stage N17.9; N18.9 Acute renal failure type: unspecified Chronic kidney disease stage: unspecified stage Elevated blood uric acid level E79.0 Foot pain, bilateral M79.671; M79.672 Stage 3b chronic kidney disease (CKD) N18.32 Chronic congestive heart failure, unspecified heart failure type I50.9 Heart failure type: unspecified Heart failure chronicity: chronic Acquired hypothyroidism E03.9 Hypothyroidism type: acquired Gastroesophageal reflux disease without esophagitis K21.9 Esophagitis presence: without esophagitis Obstructive sleep apnea G47.33 Benign essential HTN I10 Acquired thrombocytopenia D69.6 Time Spent (min) 20
--- NOTE | 2023-12-14 17:18 | PC.NURSE ---
Change in pt condition noted. Pt is SOB with a requirement of 2L/NC to maintain a therapeutic oxygen saturation. Sodium Bicarb stopped. Attempted to notify Dr. Schneider of change in pt status x2 with no success.
[2023-12-14 19:33] VITALS: BP 114/70; PULSE 64; RESP 18; TEMP 36.4; O2SAT 98
[2023-12-14] MEDS: atorvastatin 40 mg Tablet 10 MG PO (20:02)
[2023-12-14 21:38] LABS: Blood Urea Nitrogen 68 mg/dL (8-23); Calcium 9.3 mg/dL (8.5-10.5); Carbon Dioxide 13 mmol/L (22-29); Chloride 103 mmol/L (98-107); Creatinine Clr Calc Pharmacy 14.5909; Glucose 187 mg/dL (65-115); NT Pro B Type Natriuretic Pept 10727 pg/mL (0-450); Osmolality Calculated 297 mOsm/kg (285-295); Sodium 131 mmol/L (136-145)
[2023-12-15] VITALS (9 sets, daily range): BP systolic 107–125; BP diastolic 62–68; PULSE 61–68; RESP 16–20; TEMP 36.3–36.5; O2SAT 94–98
[2023-12-15] MEDS: famotidine 20 mg/2 mL INJ IVP ×2 (04:15→15:44)
[2023-12-15] MEDS: levothyroxine 25 mcg Tablet PO (05:11)
[2023-12-15 05:55] LABS: Basophils % 0.1 %; Hematocrit 30.7 % (36-47); Lymphocytes # 1.1 10^3/uL (0.8-4.8); Lymphocytes % 7.1 %; Mean Corpuscular HGB Conc 32.6 g/dL (30-55); Mean Corpuscular Hemoglobin 32.9 pg (27-33); Mean Platelet Volume 10.9 fL (7.4-10.4); Monocytes # 0.3 10^3/uL (0.2-0.9); Neutrophils # 13.99 10^3/uL (1.8-7.7); Neutrophils % 89.9 %; Nucleated Red Blood Cells % 0 %; Platelet Count 316 10^3/cmm (157-399); Red Blood Count 3.04 10^6/uL (3.85-5.65); Red Cell Distribution Width 11.7 % (12.1-15.1); White Blood Count 15.57 10^3/uL (3.29-11.43)
[2023-12-15 06:13] LABS: Anion Gap 19.5 (5-19); Blood Urea Nitrogen 74 mg/dL (8-23); Calcium 9.5 mg/dL (8.5-10.5); Carbon Dioxide 13 mmol/L (22-29); Chloride 106 mmol/L (98-107); Creatinine Clr Calc Pharmacy 14.4888; Glucose 187 mg/dL (65-115); Osmolality Calculated 305 mOsm/kg (285-295); Potassium 4.5 mmol/L (3.5-5.1); Sodium 134 mmol/L (136-145)
[2023-12-15] MEDS: methylPREDNISolone sod succ 125 mg/2 mL INJ 60 MG IVP ×3 (06:37→23:07)
[2023-12-15] MEDS: carvedilol 12.5 mg Tablet PO ×2 (08:44→17:12)
[2023-12-15] MEDS: amlodipine 10 mg Tablet PO (08:44)
[2023-12-15] MEDS: heparin 5,000 unit/mL INJ 1 mL 5000 UNIT SUBCUT ×2 (08:44→15:44)
--- NOTE | 2023-12-15 09:27 | PC.CHAP ---
Pastoral Care Encounter/Spiritual Assessment Type of Contact [] Declined brand advisor visit [] Patient/Family/Request visit [] Outpatient visit [] Follow-up visit [] Physician referral [] Code/Alert [x] Routine visit [] Staff referral [] Actively dying [] Patient sleeping [] Family support [] [] Out of room [] Palliative care [] [] Receiving care in room [] Pre-surgical visit [] Trauma [] Long length of stay [] ICU visit [] Other: Relational/Emotional Strength [x] Patient feels connected with others/family/visitors/staff [] Distress [] Loneliness/isolation [] Abandonment Spirituality of Patient [x] Person of Hoa [] Attends Hinduism of their Hoa [x] Believes in Prayer [] Reads Bible or Mu-Ism materials [] There are Spiritual issues to be addressed E Learning Designer Interventions [x] Prayer [x] Active listening [] Non-anxious presence [x] Spiritual/emotional support [] Crisis/trauma care [] Spiritual counseling [] Bereavement support [] Provided bereavement packet [] Provided Bible/devotional materials [] Provided toy/stuffed animal, coloring book to patient or family member [] Provided Communion [] Anointing/[place] [] Salvation [x] Completed spiritual assessment [] Other: Impact on Illness or Injury [] Angry [] Fearful [] Anxious [] Often cries [] Exhaustion [] Unable to work [] Unable to attend caodaism [] Unable to walk/stand [] Unable to read [] Unable to drive [] Unable to eat/drink [] Unable to sleep [] Unable to be with family [] Patient intubated [] Other: Summary Time spent with patient 5 min
[2023-12-15] MEDS: cefepime 1,000 MG in sodium chloride 0.9% (plus) 50 ML 100 MG IV (11:43)
[2023-12-15] MEDS: citric acid-sodium citrate 30 mL UDC 60 ML PO (11:43)
[2023-12-15] MEDS: oxyCODONE-APAP 5-325 mg Tablet 1 TAB PO (11:52)
--- NOTE | 2023-12-15 14:58 | P.PN_ITS ---
Subjective 2 Subjective: denies nay c/o , sob improved Vitals/I&O/Wt Last Vital Signs Temp 97.5 F L 12/15/23 12:02 Pulse 65 12/15/23 12:02 Resp 20 H 12/15/23 12:02 BP 125/65 12/15/23 12:02 Pulse Ox 98 12/15/23 12:02 O2 Del Method Room Air 12/15/23 12:02 12/14/23 12/15/23 12/15/23 22:59 06:59 14:59 Intake Total 1380 / 2283.333 530 / 2813.333 1010 / 1010 Output Total 1000 / 1000 1650 / 2650 400 / 400 Balance 380 / 1283.333 -1120 / 163.333 610 / 610 Weight last 48 hrs Weight 94.092 kg Weight 94.755 kg Weight 89.811 kg Physical Exam 2 Narrative: awak , alert , no distress s2s2 rrr per report Lungs clear per report no edema Urinary Catheter Management: [place]: Cath Placed During This Visit: yes Reason for Continuing Indwelling Catheter: Accurate Measurement of Urinary Output in Critically Ill Patients Urinary Catheter Date of Insertion: 12/13/23 Urinary Catheter Time of Insertion: 17:16 Data 12/15/23 05:22 12/15/23 05:22 Micro: Microbiology 12/13/23 11:02 Urine Culture - Final Urine,Clean Catch 12/13/23 10:45 Blood Culture - Preliminary Blood NEGATIVE TO DATE 12/13/23 10:40 Blood Culture - Preliminary Blood NEGATIVE TO DATE A&P Assessment and plan (1) Acute on chronic kidney failure: Qualifiers: Acute renal failure type: unspecified Chronic kidney disease stage: u nspecified stage Qualified Code(s): N17.9 - Acute kidney failure, unspecified; N18.9 - Chronic kidney disease, unspecified Plan 1. Acute on chronic kidney disease: Baseline creatinine was in the mid 1 range now has an DWAYNE with a creatinine of 4.6. No hydronephrosis on CT. Most likely etiology multifactorial,-prerenal with decreased p.o. intake, NSAID use. - switched IVFs to bicarb drip - off now - no acute indication for dialysis, - if no improvement may consider renal biopsy -avoid nephrotoxins and IV contrast studies, check renal ultrasound, check urine electrolytes 2. Hyponatremia: Placed on low K diet, gave 1 dose of Lasix, repeat BMP pending 3. Metabolic acidosis: Secondary to DWAYNE, s/p bicarbonate drip, added bicitra , monitor 4. History of CHF, PRN lasix Patient evaluated using audiovisual cart. Time spent 40 minutes. Attestations 2 Medical Necessity Statement*: per [facility] Coding Level of Care Code Acute Code for Chg Fwd Diagnoses Acute renal failure superimposed on chronic kidney disease, unspecified acute renal failure type, unspecified CKD stage N17.9; N18.9 Acute renal failure type: unspecified Chronic kidney disease stage: unspecified stage
--- NOTE | 2023-12-15 15:02 | P.PN_ITS ---
Subjective 2 Subjective: denies any complaints Medications: Reviewed: Yes Vitals/I&O/Wt Last Vital Signs Temp 97.5 F L 12/15/23 12:02 Pulse 65 12/15/23 12:02 Resp 20 H 12/15/23 12:02 BP 125/65 12/15/23 12:02 Pulse Ox 98 12/15/23 12:02 O2 Del Method Room Air 12/15/23 12:02 12/15/23 12/15/23 12/15/23 06:59 14:59 22:59 Intake Total 530 / 2813.333 1010 / 1010 Output Total 1650 / 2650 400 / 400 Balance -1120 / 163.333 610 / 610 Weight last 48 hrs Weight 94.092 kg Weight 94.755 kg Weight 89.811 kg Physical Exam 2 Narrative: awake , alert , no distress S1S2 RRR per report Lungs clear per report no edema Urinary Catheter Management: [place]: Cath Placed During This Visit: yes Reason for Continuing Indwelling Catheter: Accurate Measurement of Urinary Output in Critically Ill Patients Urinary Catheter Date of Insertion: 12/13/23 Urinary Catheter Time of Insertion: 17:16 Data 12/16/23 04:23 12/16/23 04:23 Micro: Microbiology 12/13/23 11:02 Urine Culture - Final Urine,Clean Catch 12/13/23 10:45 Blood Culture - Preliminary Blood NEGATIVE TO DATE 12/13/23 10:40 Blood Culture - Preliminary Blood NEGATIVE TO DATE A&P Assessment and plan (1) Acute on chronic kidney failure: Qualifiers: Acute renal failure type: unspecified Chronic kidney disease stage: u nspecified stage Qualified Code(s): N17.9 - Acute kidney failure, unspecified; N18.9 - Chronic kidney disease, unspecified Plan 1. Acute on chronic kidney disease: Baseline creatinine was in the mid 1 range now has an DWAYNE with a creatinine of 4.6. No hydronephrosis on CT. Most likely etiology multifactorial,-prerenal with decreased p.o. intake, NSAID use. - s/p IVFs - no acute indication for dialysis, - Cr slightly better , can dc with out pt nephrology follow up in 1-2 weeks -avoid nephrotoxins and IV contrast studies, 2. Hyperkalemia : Placed on low K diet, 3. Metabolic acidosis: Secondary to DWAYNE, s/p bicarbonate drip, added bicitra - DC on bicitra 30 ml bid 4. History of CHF, PRN lasix Patient evaluated using audiovisual cart. Time spent 20 minutes. Attestations 2 Medical Necessity Statement*: per medicine Coding Level of Care Code Acute Code for Chg Fwd Diagnoses Acute renal failure superimposed on chronic kidney disease, unspecified acute renal failure type, unspecified CKD stage N17.9; N18.9 Acute renal failure type: unspecified Chronic kidney disease stage: unspecified stage
--- NOTE | 2023-12-15 16:17 | PM.PN ---
Subjective Subjective: No acute overnight events noted. bilateral foot and first metatarsal joint pain improved as compared to admission and she is able to walk. Reports that the left flank pain resolved. Denies any complaint of nausea or vomiting. Medications: Reviewed: Yes Vitals/I&O/Wt Last Vital Signs Temp 97.5 F L 12/15/23 12:02 Pulse 65 12/15/23 12:02 Resp 20 H 12/15/23 12:02 BP 125/65 12/15/23 12:02 Pulse Ox 98 12/15/23 12:02 O2 Del Method Room Air 12/15/23 12:02 12/15/23 12/15/23 12/15/23 06:59 14:59 22:59 Intake Total 530 / 2813.333 1010 / 1010 Output Total 1650 / 2650 400 / 400 Balance -1120 / 163.333 610 / 610 Weight last 48 hrs Weight 94.092 kg Weight 94.755 kg Weight 89.811 kg Physical Exam Narrative: She is alert awake oriented x 3 Chest clear to auscultation bilaterally Cardiovascular normal heart sounds no murmurs Abdomen soft nontender nondistended normal bowel sounds Extremities -minimal edema seen, improved as compared to on admission, bilateral swelling erythema tenderness and warmth present at base of great toes improved. Restriction of movements present. Urinary Catheter Management: [place]: Cath Placed During This Visit: yes Reason for Continuing Indwelling Catheter: Accurate Measurement of Urinary Output in Critically Ill Patients Urinary Catheter Date of Insertion: 12/13/23 Urinary Catheter Time of Insertion: 17:16 Data 12/15/23 05:22 12/15/23 05:22 Micro: Microbiology 12/13/23 11:02 Urine Culture - Final Urine,Clean Catch A&P Assessment and plan (1) Pyelonephritis, acute: (2) Urinary tract infection: (3) Gout flare: (4) Acute on chronic kidney failure: Qualifiers: Acute renal failure type: unspecified Chronic kidney disease stage: unspecified stage Qualified Code(s): N17.9 - Acute kidney failure, unspecified; N18.9 - Chronic kidney disease, unspecified (5) Elevated blood uric acid level: (6) Foot pain, bilateral: (7) Stage 3b chronic kidney disease (CKD): (8) CHF (congestive heart failure): Qualifiers: Heart failure type: unspecified Heart failure chronicity: chronic Qualified Code(s): I50.9 - Heart failure, unspecified (9) Hypothyroidism: Qualifiers: Hypothyroidism type: acquired Qualified Code(s): E03.9 - Hypothyroidism, unspecified (10) Gastroesophageal reflux disease: Qualifiers: Esophagitis presence: without esophagitis Qualified Code(s): K21.9 - Gastro-esophageal reflux disease without esophagitis (11) Obstructive sleep apnea: (12) Benign essential HTN: (13) Acquired thrombocytopenia: Plan 78 year old female with history of hypertension COPD gout hypothyroidism stage III CKD CHF GERD dyslipidemia obstructive sleep apnea presented with complaint of bilateral foot pain and left flank pain since 2 to 3 weeks. Found to have a uric acid level of 10 and UTI as an outpatient. Was started on allopurinol and Levaquin but with no relief. She presented with worsening left flank pain and foot pain today that is refractory to outpatient oral therapy.. Was found to have leukocytosis with left shift, acute on chronic renal failure and UA consistent with severe UTI. 1. Acute pyelonephritis- left flank pain resolved discontinue IV cefepime and vancomycin will switch to IV levaquin 750mg daily IV fluids normal saline at 100 mL/h. 2. Acute gout- likely secondary to hyperuricemia ( uric acid 10)secondary to CKD Will continue with IV Solu-Medrol 60 mg every 12hours. IV morphine 2 mg every 8 hours as needed for pain control P.o. Percocet 5/325 mg every 6 hours for breakthrough pain Leg elevation and warm compresses to the affected area as needed. Rheumatology follow as outpatient 3. Acute on chronic renal failure- Likely secondary to UTI versus dehydration versus medication induced. Will give IV fluids normal saline at 100 mm/h. Hold home medication Lasix and spironolactone will follow up nephrology as outpatient in 2 weeks for further need for kidney biopsy and management. 4. Thrombocytopenia resolved 5. Cardiac diet 6. DVT prophylaxis with subcutaneous heparin 5000 units every 8 hours 7. GI prophylaxis with IV Pepcid 20 mg twice daily 8. CODE STATUS discussed with the patient, she is full code for now. 9. resume home medications. Attestations Medical Necessity Statement*: She needs continued hospitalization for IV steroids for acute gout and IV antibiotics for Acute pyelonephritis Time Spent in Patient Care: 15 minutes Coding Level of Care Code Acute Code for [facility] Diagnoses Pyelonephritis, acute N10 Urinary tract infection N39.0 Gout flare M10.9 Acute renal failure superimposed on chronic kidney disease, unspecified acute renal failure type, unspecified CKD stage N17.9; N18.9 Acute renal failure type: unspecified Chronic kidney disease stage: unspecified stage Elevated blood uric acid level E79.0 Foot pain, bilateral M79.671; M79.672 Stage 3b chronic kidney disease (CKD) N18.32 Chronic congestive heart failure, unspecified heart failure type I50.9 Heart failure type: unspecified Heart failure chronicity: chronic Acquired hypothyroidism E03.9 Hypothyroidism type: acquired Gastroesophageal reflux disease without esophagitis K21.9 Esophagitis presence: without esophagitis Obstructive sleep apnea G47.33 Benign essential HTN I10 Acquired thrombocytopenia D69.6 Time Spent (min) 15
[2023-12-15] MEDS: levofloxacin-dextrose 5 % 750 MG/150 ML PREMIX 100 MG IV (16:49)
[2023-12-15] MEDS: atorvastatin 40 mg Tablet 10 MG PO (20:23)
[2023-12-16] MEDS: heparin 5,000 unit/mL INJ 1 mL 5000 UNIT SUBCUT ×2 (00:07→08:16)
[2023-12-16] MEDS: famotidine 20 mg/2 mL INJ IVP (03:41)
[2023-12-16 03:47] VITALS: BP 104/45; PULSE 65; RESP 17; TEMP 36.4; O2SAT 94
[2023-12-16] MEDS: levothyroxine 25 mcg Tablet PO (05:11)
[2023-12-16 05:19] LABS: Basophils % 0.1 %; Hematocrit 29.4 % (36-47); Lymphocytes % 8.5 %; Mean Corpuscular Hemoglobin 32.8 pg (27-33); Mean Corpuscular Volume 96.4 fl (85-98); Mean Platelet Volume 11.3 fL (7.4-10.4); Monocytes # 0.3 10^3/uL (0.2-0.9); Monocytes % 2.4 %; Neutrophils # 10.25 10^3/uL (1.8-7.7); Nucleated Red Blood Cells % 0 %; Platelet Count 154 10^3/cmm (157-399); Red Blood Count 3.05 10^6/uL (3.85-5.65); White Blood Count 11.65 10^3/uL (3.29-11.43)
[2023-12-16 05:38] LABS: Anion Gap 20.4 (5-19); Calcium 9.2 mg/dL (8.5-10.5); Carbon Dioxide 15 mmol/L (22-29); Chloride 105 mmol/L (98-107); Creatinine Clr Calc Pharmacy 15.6958; Glucose 163 mg/dL (65-115); Osmolality Calculated 310 mOsm/kg (285-295); Potassium 4.4 mmol/L (3.5-5.1); Sodium 136 mmol/L (136-145)
[2023-12-16 05:48] LABS: Blood Urea Nitrogen 82 mg/dL (8-23)
[2023-12-16] MEDS: ondansetron 2 mg/ML SDV 2 mL 4 MG IVP (06:44)
[2023-12-16 07:27] VITALS: BP 114/53; PULSE 66; RESP 16; TEMP 36.8; O2SAT 99
[2023-12-16] MEDS: methylPREDNISolone sod succ 125 mg/2 mL INJ 60 MG IVP (08:15)
[2023-12-16 08:16] VITALS: BP 118/65; PULSE 67
[2023-12-16] MEDS: amlodipine 10 mg Tablet PO (08:16)
[2023-12-16] MEDS: carvedilol 12.5 mg Tablet PO (08:16)
--- NOTE | 2023-12-16 08:18 | PC.SOCIAL ---
Pg 2 IMM. Explained to pt Pg 2 IMM. No questions voiced. Provided pt a copy. Initialed, dated, & timed a copy & placed in chart.
[2023-12-16 08:32] VITALS: PULSE 66; RESP 17; O2SAT 98
[2023-12-16 08:35] VITALS: O2SAT 94
[2023-12-16] MEDS: polyethylene glycol 3350 Pkt 17 gm PO (09:02)
--- NOTE | 2023-12-16 09:19 | P.DS_ITS ---
Discharge Providers Date of Admission: 12/13/23 15:08 Date of Discharge: December 16, 2023 Attending Provider at Admission: Salma Healy MD Attending Provider at Discharge: Salma Healy MD Consults: Nephrology Podiatry Primary Care Provider: Jessie Villalpando MD Diagnoses at Discharge Discharge Diagnosis (1) Pyelonephritis, acute: Status: Acute (2) Urinary tract infection: Status: Acute (3) Gout flare: Status: Acute (4) Acute on chronic kidney failure: Status: Acute Qualifiers: Acute renal failure type: unspecified Chronic kidney disease stage: unspecified stage Qualified Code(s): N17.9 - Acute kidney failure, unspecified; N18.9 - Chronic kidney disease, unspecified (5) Elevated blood uric acid level: Status: Acute (6) Foot pain, bilateral: Status: Acute (7) Stage 3b chronic kidney disease (CKD): Status: Acute (8) CHF (congestive heart failure): Status: Acute Qualifiers: Heart failure type: unspecified Heart failure chronicity: chronic Qualified Code(s): I50.9 - Heart failure, unspecified (9) Hypothyroidism: Status: Acute Qualifiers: Hypothyroidism type: acquired Qualified Code(s): E03.9 - Hypothyroidism, unspecified (10) Gastroesophageal reflux disease: Status: Acute Qualifiers: Esophagitis presence: without esophagitis Qualified Code(s): K21.9 - Gastro-esophageal reflux disease without esophagitis (11) Obstructive sleep apnea: Status: Acute (12) Benign essential HTN: Status: Acute (13) Acquired thrombocytopenia: Status: Acute Reason for Visit Reason for Visit: right side pain, feet pain, nausea Brief History: Hetal Maldonado is a 78 year old female with history of hypertension COPD gout hypothyroidism stage III CKD CHF GERD dyslipidemia obstructive sleep apnea presented with complaint of bilateral foot pain and left flank pain since 2 to 3 weeks. She was diagnosed with acute gout and UTI as an outpatient. She was started on p.o. allopurinol for acute gout, and Macrobid for UTI which she took only for a day, later she was switched to p.o. Levaquin of which she took only 3 doses. She now presented with worsening abdominal pain and foot/toe pain. She describes left flank pain as 6-7/10, in the left costovertebral angle, radiating to groin, crampy, no aggravating or relieving factors. She reports associated symptoms of loss of appetite and nausea for the last few days but no fever chest pain cough cold vomiting or diarrhea. The toe foot pain started 3 weeks ago and has been gradually progressing, associated with restriction of movements and edema in bilateral feet. She states her uric acid was found to be 10 as an outpatient, her baseline creatinine has been around 1.3-1.4. In the ER she was found to have leukocytosis of 13.4 with left shift hemoglobin of 10.8 platelets 41 BUN/creatinine 56/4.5 CRP 120 UA showed 2+ blood 2+ leukocyte Estrace WBCs too numerous to count Hospital Course Hospital Course She was found to have acute pyelonephritis and treated with IV antibiotics vancomycin and cefepime, and IV fluids. She was also found to have acute bilateral foot which was treated with IV Solu-Medrol 60 mg every 8 hours, she was consulted by podiatry and there was no acute intervention to be done. As per podiatry she might need follow-up for elevated uric acid level as an outpatient. She was also in acute on chronic renal failure, consulted by nephrology. Received 1 dose of IV Lasix and bicarb. Kidney function improving this morning creatinine down to 4.3. Acute renal failure postulated to be due to combination of UTI hyperuricemia and dehydration. She is doing better as compared to admission, foot pain improved she is able to walk , no new complaints noted. She is to be discharged home today with follow-up with PCP in 1 week with repeat labs, BMP If blood kidney function does not improve outpatient she might need follow-up with Dr. Sun, [facility] [place] Physical Exam Narrative: She is alert awake oriented x 3 Chest clear to auscultation bilaterally Cardiovascular normal heart sounds no murmurs Abdomen soft nontender nondistended normal bowel sounds Extremities -minimal edema seen, improved as compared to on admission, bilateral swelling erythema tenderness and warmth present at base of great toes improved. Restriction of movements present. Urinary Catheter Management: [place]: Cath Placed During This Visit: yes Reason for Continuing Indwelling Catheter: Accurate Measurement of Urinary Output in Critically Ill Patients Urinary Catheter Date of Insertion: 12/13/23 Urinary Catheter Time of Insertion: 17:16 Discharge Data Studies Completed and Pending Completed Studies During Hospitalization Category Date Time Status CT abdomen pelvis [facility] [id number] Stat Cat Scan 12/13/23 13:09 Completed CXRP [XR chest 1V portable [id number]] Stat Exams 12/14/23 11:32 Completed XR foot LT min 3V* [id number] Routine Exams 12/13/23 16:37 Completed XR foot RT min 3V* [id number] Routine Exams 12/13/23 16:37 Completed Pending at discharge Category Date Time Status Blood Culture Stat Lab 12/13/23 10:45 Results Radiology Impressions Abdomen/Pelvis CT 12/13/23 13:09 IMPRESSION: 1. No small bowel obstruction, abscess or free air. 2. Moderate sigmoid diverticulosis. No strong evidence for diverticulitis. 3. There is slight 3rd spacing of fluid present with perinephric fat stranding, trace left effusion, and trace pelvic free fluid. 4. Severe atherosclerosis and other chronic findings above. Foot X-Ray 12/13/23 16:37 IMPRESSION: Chronic degenerative changes and osseous valgus deformity are observed in the 1st metatarsophalangeal (MTP) joint. Additionally, there is worsening joint space narrowing along the tarsometatarsal joints/Lisfranc joints. Laboratory Results WBC 11.65 10^3/uL (3.29-11.43) H 12/16/23 04:23 RBC 3.05 10^6/uL (3.85-5.65) L 12/16/23 04:23 Hgb 10.00 g/dL (11.27-16.99) L 12/16/23 04:23 Hct 29.4 % (36-47) L 12/16/23 04:23 MCV 96.4 fl (85-98) 12/16/23 04:23 MCH 32.8 pg (27-33) 12/16/23 04:23 MCHC 34.0 g/dL (30-55) 12/16/23 04:23 RDW 12.0 % (12.1-15.1) L 12/16/23 04:23 Plt Count 154 10^3/cmm (157-399) L D 12/16/23 04:23 MPV 11.3 fL (7.4-10.4) H 12/16/23 04:23 Neut % (Auto) 88.0 % 12/16/23 04:23 Lymph % (Auto) 8.5 % 12/16/23 04:23 [place] % (Auto) 2.4 % 12/16/23 04:23 Eos % (Auto) 0.0 % 12/16/23 04:23 Baso % (Auto) 0.1 % 12/16/23 04:23 Neut # (Auto) 10.25 10^3/uL (1.8-7.7) H 12/16/23 04:23 Lymph # (Auto) 1.0 10^3/uL (0.8-4.8) 12/16/23 04:23 [place] # (Auto) 0.3 10^3/uL (0.2-0.9) 12/16/23 04:23 Eos # (Auto) 0.0 10^3/uL (0.0-0.8) 12/16/23 04:23 Baso # (Auto) 0.0 10^3/uL (0.0-0.1) 12/16/23 04:23 Nucleated RBC % (auto) 0 % 12/16/23 04: Nucleated RBCs # 0.0 /100WBC 12/16/23 04:23 Sodium 136 mmol/L (136-145) 12/16/23 04:23 Potassium 4.4 mmol/L (3.5-5.1) 12/16/23 04:23 Chloride 105 mmol/L (98-107) 12/16/23 04:23 Carbon Dioxide 15 mmol/L (22-29) L 12/16/23 04:23 Anion Gap 20.4 (5-19) H 12/16/23 04:23 BUN 82 mg/dL (8-23) H* 12/16/23 04:23 Creatinine 4.3 mg/dL (0.5-0.9) H 12/16/23 04:23 GFR Calculation Not Reportable 12/16/23 04:23 Glucose 163 mg/dL (65-115) H 12/16/23 04:23 Calculated Osmolality 310 mOsm/kg (285-295) H 12/16/23 04:23 Lactic Acid 0.9 mmol/L (0.5-2.2) 12/13/23 10:40 Calcium 9.2 mg/dL (8.5-10.5) 12/16/23 04:23 Magnesium 1.9 mg/dL (1.7-2.3) 12/14/23 04:21 Total Bilirubin 0.5 mg/dL (0.15-1.2) 12/13/23 10:40 AST 10 U/L (0-32) 12/13/23 10:40 ALT 7 U/L (0-33) 12/13/23 10:40 Alkaline Phosphatase 83 U/L (35-105) 12/13/23 10:40 C-Reactive Protein 120.8 mg/L (0.0-4.9) H 12/13/23 10:40 NT-Pro-B Natriuret Pep 97025 pg/mL (0-450) H 12/14/23 20:57 Total Protein 7.4 g/dL (6.6-8.7) 12/13/23 10:40 Albumin 3.3 g/dL (3.5-5.2) L 12/13/23 10:40 Globulin 4.1 g/dL (1.3-4.6) 12/13/23 10:40 Urine Color Straw (Yellow) 12/13/23 11:02 Urine Appearance Hazy (CLEAR) A 12/13/23 11:02 Urine pH 6 (5-7) 12/13/23 11:02 Ur Specific [place] 1.005 (1.005-1.030) 12/13/23 11:02 Urine Protein Neg (Negative) 12/13/23 11:02 Urine Glucose (UA) Norm (Normal) 12/13/23 11:02 Urine Ketones Negative (Negative) 12/13/23 11:02 Urine Blood 2+ (Negative) H 12/13/23 11:02 Urine Nitrate Negative (Negative) 12/13/23 11:02 Urine Bilirubin Neg (Negative) 12/13/23 11:02 Urine Urobilinogen Norm mg/dL (Negative) 12/13/23 11:02 Ur Leukocyte Esterase 2+ (Negative) H 12/13/23 11:02 Urine RBC 5-10 /hpf (0-2) H 12/13/23 11:02 Urine WBC Too numerous to cnt /hpf (0-5) H 12/13/23 11:02 Ur Squamous Epith Cells 0-4 /hpf (0-5) H 12/13/23 11:02 Amorphous Sediment Not Reportable 12/13/23 11:02 Urine Bacteria 1+ /hpf (NONE) H 12/13/23 11:02 Vitals Last Vital Signs Temp 98.2 F 12/16/23 07:27 Pulse 66 12/16/23 08:32 Resp 17 12/16/23 08:32 BP 118/65 12/16/23 08:16 Pulse Ox 94 12/16/23 08:35 O2 Del Method Room Air 12/16/23 08:35 Discharge Plan Discharge Patient Disposition: Home Condition: Stable Prescriptions: New oxycodone-acetaminophen 5-325 mg Tablet 1 tab PO Q6H PRN (Reason: Severe Pain) 5 Days Qty: 10 0RF prednisone 10 mg tablet 10 mg PO DIRECTED 6 Days Qty: 20 0RF Rx Instructions: Day 1-60mg, Day2 -50mg, Day 3- 40mg Day 4-30mg, Day 5-20mg, day 6- 10mg levofloxacin 750 mg tablet 750 mg PO DAILY 10 Days Qty: 10 0RF Continued albuterol sulfate 2.5 mg /3 mL (0.083 %) solution for nebulization 2.5 mg inhalation QID PRN (Reason: shortness of breath or wheezing) Qty: 90 2RF albuterol sulfate 90 mcg/actuation HFA aerosol inhaler 2 inh INHALATION Q4H PRN (Reason: shortness of breath or wheezing) Qty: 18 0RF pantoprazole [Protonix] 40 mg tablet,delayed release (DR/EC) 40 mg PO BID 90 Days Qty: 180 0RF amlodipine 10 mg tablet 10 mg PO DAILY Qty: 100 3RF carvedilol 12.5 mg tablet 12.5 mg PO BID Qty: 180 3RF Rx Instructions: must administer with a meal/food furosemide [Lasix] 20 mg tablet 20 mg PO DAILY PRN (Reason: edema) Qty: 30 1RF Rx Instructions: Take 1 tablet daily as needed for shortness of breath levothyroxine 25 mcg tablet 25 mcg PO QAM spironolactone 100 mg tablet 100 mg PO DAILY rosuvastatin 10 mg tablet 10 mg PO DAILY Vitamin D3 125 mcg (5,000 unit) Tablet 10,000 unit PO QAM Discontinued (DME) Custom Molded Orthotics See Rx Instructions .Route .MEDSUPPLY Qty: 1 0RF Rx Instructions: As directed (DME) Night Splint to the right See Rx Instructions .Route .MEDSUPPLY Qty: 1 0RF Rx Instructions: As directed allopurinol 100 mg tablet 100 mg PO DAILY 90 Days Qty: 90 1RF levofloxacin 500 mg tablet 500 mg PO DAILY 5 Days Qty: 5 0RF Rx Instructions: for 5 days (rx filled 12/11/23) Discharge Orders: Discharge Order (Routine); Ordered 12/16/23 Ordered By: Salma Healy Referrals: Cielo Sun MD [Referring] - (SENT REFERRAL FOR APPOINTMENT We have notified your physician's clinic of the need for a follow-up appointment to be scheduled. If you have not heard from them within the next 2 business days, please call them directly. ) Jessie Villalpando MD [Primary Care Provider] - 12/23/23 2:40 pm Discharge Diet: Cardiac Discharge Activity: Increase activity as tolerated Patient Instructions: Oxycodone/Acetaminophen (By mouth), Prednisone (By mouth), Levofloxacin (By mouth) (Levaquin, Levaquin Leva-marie), Abdominal Pain (ED), Opioid Safety, Pain Management Activity Restrictions/Additional Instructions: Follow up PCP in 1 week Repeat labs in 1 week Nephrology consult if needed with Dr. Sun in [place] Discharge Attestations Time Spent in Discharge Care*: less than 30 min Quality Metrics Clinical Quality Measures [ No reported AMI, CVA or VTE this stay] Coding Level of Care Code Acute Code for [facility]g F[facility] Diagnoses Pyelonephritis, acute N10 Urinary tract infection N39.0 Gout flare M10.9 Acute renal failure superimposed on chronic kidney disease, unspecified acute renal failure type, unspecified CKD stage N17.9; N18.9 Acute renal failure type: unspecified Chronic kidney disease stage: unspecified stage Elevated blood uric acid level E79.0 Foot pain, bilateral M79.671; M79.672 Stage 3b chronic kidney disease (CKD) N18.32 Chronic congestive heart failure, unspecified heart failure type I50.9 Heart failure type: unspecified Heart failure chronicity: chronic Acquired hypothyroidism E03.9 Hypothyroidism type: acquired Gastroesophageal reflux disease without esophagitis K21.9 Esophagitis presence: without esophagitis Obstructive sleep apnea G47.33 Benign essential HTN I10 Acquired thrombocytopenia D69.6 Time Spent (min) 20
[2023-12-16] MEDS: citric acid-sodium citrate 30 mL UDC PO (09:56)
--- NOTE | 2023-12-16 12:21 | PC.NURSE ---
Discussed discharge instructions, new medications, discontinued medications, follow up appointments and gave patient Oxy prescription to have filled. Patient verbalized understanding for all. Was excited due to Dr. Jessie Villalpando called patient to inform her the doctor was taking over kidneys and heart failure patients so she would be following her constantly. Also talked to patient about fluid intake and diet.
[2023-12-16 12:24] VITALS: BP 118/65; PULSE 66; RESP 17; TEMP 36.8; O2SAT 94
== END 2023-12-16 11:38 | disposition home or self-care (01) | DRG 690 ==
LOC: ER 14:59 → MEDSURG 15:53
PROVIDERS: Hospitalist; Admitting Provider Internal Medicine; Emergency Provider Emergency Medicine; PCP Family Medicine; Visit Provider Internal Medicine
DX: N10 Acute pyelonephritis (principal); I13.0 Hypertensive heart and chronic kidney disease with heart failure and stage 1 through stage 4 chronic kidney disease, or unspecified chronic kidney disease; I50.32 Chronic diastolic (congestive) heart failure; E87.20 Acidosis, unspecified; E87.1 Hypo-osmolality and hyponatremia; M10.9 Gout, unspecified; N18.30 Chronic kidney disease, stage 3 unspecified; N17.9 Acute kidney failure, unspecified; E86.0 Dehydration; E87.5 Hyperkalemia; E03.9 Hypothyroidism, unspecified; K21.9 Gastro-esophageal reflux disease without esophagitis; E78.5 Hyperlipidemia, unspecified; G47.33 Obstructive sleep apnea (adult) (pediatric)
CPT/HCPCS: 36415; 51702; 71045; 73630; 74176; 80048; 80053; 81001; 83605; 83735; 83880; 85025; 86140; 87040; 87086; 94664; 96365; 96367; 96372; 96375; 99285; J0692; J1644; J1940; J1956; J2020; J2270; J2405; J2919; J3370; J3490; J7030; J7050; J7070; Q3014

== ENCOUNTER → 2023-12-18 11:07 | Outpatient (BNVA) | payer MEDICARE, BC, SELFPAY | PROVIDERS: PCP Family Medicine; Visit Provider Nurse Practitioner Family | DX: I10 Essential (primary) hypertension (principal); R60.9 Edema, unspecified; N18.9 Chronic kidney disease, unspecified | CPT/HCPCS: 80053; 84550; 85025 ==

== ENCOUNTER → 2023-12-25 11:35 | Outpatient (BNVA) | payer MEDICARE, BC, SELFPAY | PROVIDERS: PCP Family Medicine; Visit Provider Family Medicine | DX: N17.9 Acute kidney failure, unspecified (principal); M10.9 Gout, unspecified | CPT/HCPCS: 80053; 84550; 85025 ==

== ENCOUNTER → 2023-12-29 12:20 | Outpatient (BNVA) | payer MEDICARE, BC, SELFPAY | PROVIDERS: PCP Family Medicine; Visit Provider Family Medicine | DX: R35.0 Frequency of micturition (principal) | CPT/HCPCS: 81003 ==

== ENCOUNTER → 2023-12-31 10:21 | Outpatient (BNVA) | payer MEDICARE, BC, SELFPAY | PROVIDERS: PCP Family Medicine; Visit Provider Family Medicine | DX: N17.9 Acute kidney failure, unspecified (principal); N18.9 Chronic kidney disease, unspecified | CPT/HCPCS: 80069; 82570; 84156; 85025 ==

== ENCOUNTER → 2024-01-06 14:21 | Outpatient (BNVA) | payer MEDICARE, BC, SELFPAY | PROVIDERS: PCP Family Medicine; Visit Provider Nurse Practitioner Family | DX: R35.0 Frequency of micturition (principal) | CPT/HCPCS: 81000 ==

== ENCOUNTER → 2024-01-13 09:07 | Outpatient (BNVA) | payer MEDICARE, BC, SELFPAY | PROVIDERS: PCP Family Medicine; Visit Provider Family Medicine | DX: N17.9 Acute kidney failure, unspecified (principal); Z79.899 Other long term (current) drug therapy | CPT/HCPCS: 80069; 81003; 82306; 82310; 82570; 83970; 84156; 84550; 87077; 87086; 87184 ==

== ENCOUNTER → 2024-02-02 11:04 | Outpatient (BNVA) | payer MEDICARE, BC, SELFPAY | PROVIDERS: PCP Family Medicine; Visit Provider Family Medicine | DX: N17.9 Acute kidney failure, unspecified (principal); N39.0 Urinary tract infection, site not specified | CPT/HCPCS: 80069; 81003 ==

== ENCOUNTER → 2024-02-22 09:39 | Outpatient (BNVA) | payer MEDICARE, BC, SELFPAY | PROVIDERS: PCP Family Medicine; Visit Provider Family Medicine | DX: I50.9 Heart failure, unspecified (principal); Z79.899 Other long term (current) drug therapy | CPT/HCPCS: 80069; 81000; 82306; 82310; 82570; 83970; 84156; 84550 ==

== ENCOUNTER → 2024-03-08 10:02 | Outpatient (BNVA) | payer MEDICARE, BC, SELFPAY | PROVIDERS: PCP Family Medicine; Visit Provider Family Medicine | DX: N18.32 Chronic kidney disease, stage 3b (principal); R32 Unspecified urinary incontinence; E03.9 Hypothyroidism, unspecified | CPT/HCPCS: 81003; 87086 ==

== ENCOUNTER → 2024-03-10 10:00 | Outpatient (BNVA) | payer MEDICARE, BC, SELFPAY | PROVIDERS: PCP Family Medicine; Visit Provider Internal Medicine Cardiovascular Disease | DX: E03.9 Hypothyroidism, unspecified (principal) | CPT/HCPCS: 84443 ==

== ENCOUNTER → 2024-04-18 09:42 | Outpatient (BNVA) | payer MEDICARE, BC, SELFPAY | PROVIDERS: PCP Family Medicine; Visit Provider Family Medicine | DX: I10 Essential (primary) hypertension (principal); R32 Unspecified urinary incontinence; N18.32 Chronic kidney disease, stage 3b | CPT/HCPCS: 80053; 81000; 85025 ==

== ENCOUNTER → 2024-04-27 10:54 | Outpatient (BNVA) | payer MEDICARE, BC, SELFPAY | PROVIDERS: PCP Family Medicine; Visit Provider Internal Medicine Cardiovascular Disease | DX: R06.02 Shortness of breath (principal) | CPT/HCPCS: 36415; 80048; 83880 ==

== ENCOUNTER 2024-05-11 13:31 | Oncology outpatient (recurring) (ONCR) | payer MEDICARE, BC, SELFPAY ==
[2024-05-11 15:06] LABS: Erythrocyte Sedimentation Rate 21 mm/hr (0-15)
[2024-05-11 15:09] LABS: Basophils % 0.3 %; Eosinophils # 0.2 10^3/uL (0.0-0.8); Eosinophils % 3.9 %; Hematocrit 37.8 % (36-47); Lymphocytes # 1.8 10^3/uL (0.8-4.8); Lymphocytes % 29.1 %; Mean Corpuscular HGB Conc 33.9 g/dL (30-55); Mean Corpuscular Hemoglobin 33.2 pg (27-33); Mean Corpuscular Volume 98.2 fl (85-98); Monocytes # 0.6 10^3/uL (0.2-0.9); Neutrophils # 3.46 10^3/uL (1.8-7.7); Neutrophils % 56.5 %; Nucleated Red Blood Cells % 0 %; Red Blood Count 3.85 10^6/uL (3.85-5.65); Red Cell Distribution Width 12.1 % (12.1-15.1); White Blood Count 6.12 10^3/uL (3.29-11.43)
[2024-05-11 15:22] LABS: Alanine Aminotransferase 13 U/L (0-33); Albumin Level 4.2 g/dL (3.5-5.2); Alkaline Phosphatase 71 U/L (35-105); Anion Gap 15.1 (5-19); Aspartate Amino Transferase 22 U/L (0-32); Blood Urea Nitrogen 30 mg/dL (8-23); Calcium 9.9 mg/dL (8.5-10.5); Carbon Dioxide 23 mmol/L (22-29); Chloride 101 mmol/L (98-107); Creatinine Clr Calc Pharmacy 30.3214; Globulin 2.7 g/dL (1.3-4.6); Glucose 103 mg/dL (65-115); Osmolality Calculated 286 mOsm/kg (285-295); Potassium 4.1 mmol/L (3.5-5.1); Sodium 135 mmol/L (136-145); Total Bilirubin 0.3 mg/dL (0.15-1.2); Total Protein 6.9 g/dL (6.6-8.7)
[2024-05-11 15:38] LABS: Vitamin B12 792 pg/mL (232-1245)
[2024-05-11 15:41] LABS: LAB Peripheral Smear Sent for Review
[2024-05-12 07:09] LABS: PROTEIN, TOTAL 6.4 g/dL (6.1-8.1)
[2024-05-12 11:49] LABS: KAPPA LIGHT CHAIN, FREE, SERUM 26.9 mg/L (3.3-19.4); KAPPA/LAMBDA LIGHT CHAINS FREE 1.15 (0.26-1.65); LAMBDA LIGHT CHAIN, FREE, SERU 23.3 mg/L (5.7-26.3)
[2024-05-12 15:15] LABS: ALBUMIN 3.8 g/dL (3.8-4.8); ALPHA 1 GLOBULIN 0.3 g/dL (0.2-0.3); ALPHA 2 GLOBULIN 0.8 g/dL (0.5-0.9); BETA 1 GLOBULIN 0.5 g/dL (0.4-0.6); BETA 2 GLOBULIN 0.4 g/dL (0.2-0.5); GAMMA GLOBULIN 0.7 g/dL (0.8-1.7)
[2024-05-13 10:55] LABS: Anti-Nuclear Antibody Pattern Nuclear, Homogeneous; Anti-Nuclear Antibody Screen POSITIVE (NEGATIVE)
[2024-05-13 14:56] LABS: Platelet Count 330 10^3/cmm (157-399)
[2024-05-14 20:50] LABS: Immunofixation Serum Normal pattern.
== END 2024-05-30 23:59 | disposition home or self-care (01) ==
LOC: ONCMED 13:31
PROVIDERS: PCP Family Medicine; Visit Provider Internal Medicine Medical Oncology
DX: D69.6 Thrombocytopenia, unspecified (principal); R53.83 Other fatigue; M25.50 Pain in unspecified joint; I13.0 Hypertensive heart and chronic kidney disease with heart failure and stage 1 through stage 4 chronic kidney disease, or unspecified chronic kidney disease; N18.30 Chronic kidney disease, stage 3 unspecified; I50.32 Chronic diastolic (congestive) heart failure; Z85.828 Personal history of other malignant neoplasm of skin
CPT/HCPCS: 36415; 80053; 82607; 83883; 84155; 84165; 85025; 85651; 86038; 86140; 86334; 99204

== ENCOUNTER → 2024-05-16 08:53 | Outpatient (BNVA) | payer MEDICARE, BC, SELFPAY | PROVIDERS: PCP Family Medicine; Visit Provider Family Medicine | DX: N18.32 Chronic kidney disease, stage 3b (principal) | CPT/HCPCS: 80069; 82570; 84156 ==

== ENCOUNTER 2024-06-09 15:28 | Outpatient (CLI) | payer MEDICARE, BC, SELFPAY ==
--- NOTE | 2024-06-09 15:40 | MR_ITS ---
WS: [id number] MRI LEFT KNEE HISTORY: KNEE PAIN COMPARISON: None available. Anterior cruciate ligament: Mild increased signal from mucoid degeneration. Majority of the ACL appea rs intact. Posterior cruciate ligament: Intact. Medial collateral ligament: Fluid around the MCL but no full-thickness tear. Posterior lateral corner structures: Intact. Medial menisci: Radial tear body of the meniscus. Additional abnormal signal in the posterior horn wi th blunting of the free edge and abnormal signal extending into the root. Anterior horn is normal. Lateral meniscus: Intact. Normal signal, size and shape. Extensor mechanism: Distal quadriceps tendon and patellar tendons are intact. Fluid and soft tissue: Small joint effusion. No Nguyen's cyst. Osseous and articular structures: Patellofemoral compartment: Normal. 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 Small amou nt of marrow edema in the femoral condyle and tibial plateau. Lateral compartment: Mild narrowing of the lateral compartment with fissuring of the cartilage. MR/MR knee LT wo con* [id number] IMPRESSION: 1. Radial tear body of the medial meniscus with a complex tear extending into the posterior horn. 2. Mild MCL sprain. 3. Mild internal derangement medial compartment with joint space narrowing and loss of cartilage. Small amount of marrow edema. 4. Small suprapatellar joint effusion.
== END 2024-06-09 15:29 | disposition home or self-care (01) ==
LOC: RAD 15:31
PROVIDERS: PCP Family Medicine; Visit Provider Orthopaedic Surgery
DX: S83.232A Complex tear of medial meniscus, current injury, left knee, initial encounter (principal); X58.XXXA Exposure to other specified factors, initial encounter
CPT/HCPCS: 73721

== ENCOUNTER → 2024-08-29 11:55 | Outpatient (BNVA) | payer MEDICARE, BC, SELFPAY | PROVIDERS: PCP Family Medicine; Visit Provider Nurse Practitioner Family | DX: R32 Unspecified urinary incontinence (principal); N18.32 Chronic kidney disease, stage 3b | CPT/HCPCS: 80069; 81003; 82043; 82306; 82310; 83970; 85007; 85027; 87086 ==

== ENCOUNTER → 2024-09-22 13:28 | Outpatient (BNVA) | payer MEDICARE, BC, SELFPAY | PROVIDERS: PCP Family Medicine; Visit Provider Nurse Practitioner Family | DX: R39.9 Unspecified symptoms and signs involving the genitourinary system (principal) | CPT/HCPCS: 81000 ==

== ENCOUNTER → 2024-12-07 08:28 | Outpatient (BNVA) | payer MEDICARE, BC, SELFPAY | PROVIDERS: PCP Family Medicine; Visit Provider Family Medicine | DX: N18.32 Chronic kidney disease, stage 3b (principal) | CPT/HCPCS: 80069; 82570; 84156 ==

== ENCOUNTER 2024-12-19 09:25 | Outpatient (CLI) | payer MEDICARE, BC, SELFPAY ==
[2024-12-19 10:32] LABS: Basophils % 0.4 %; Eosinophils # 0.3 10^3/uL (0.0-0.8); Hematocrit 42.1 % (36-47); Lymphocytes # 1.8 10^3/uL (0.8-4.8); Lymphocytes % 24.6 %; Mean Corpuscular Hemoglobin 32.9 pg (27-33); Mean Corpuscular Volume 96.8 fl (85-98); Mean Platelet Volume 13.4 fL (7.4-10.4); Monocytes # 0.4 10^3/uL (0.2-0.9); Monocytes % 6.1 %; Neutrophils # 4.65 10^3/uL (1.8-7.7); Neutrophils % 64.6 %; Nucleated Red Blood Cells % 0 %; Platelet Count 41 10^3/cmm (157-399); Red Blood Count 4.35 10^6/uL (3.85-5.65); Red Cell Distribution Width 11.9 % (12.1-15.1)
[2024-12-19 10:53] LABS: Slide Review Slide Review Perform
== END 2024-12-19 09:26 | disposition home or self-care (01) ==
PROVIDERS: PCP Family Medicine; Visit Provider Registered Nurse
DX: N18.32 Chronic kidney disease, stage 3b (principal)
CPT/HCPCS: 85025

== ENCOUNTER → 2024-12-20 11:57 | Outpatient (BNVA) | payer MEDICARE, BC, SELFPAY | PROVIDERS: PCP Family Medicine; Visit Provider Internal Medicine Cardiovascular Disease | DX: I13.0 Hypertensive heart and chronic kidney disease with heart failure and stage 1 through stage 4 chronic kidney disease, or unspecified chronic kidney disease (principal); N18.32 Chronic kidney disease, stage 3b; I50.9 Heart failure, unspecified; E78.5 Hyperlipidemia, unspecified; G47.33 Obstructive sleep apnea (adult) (pediatric); R07.9 Chest pain, unspecified; R06.02 Shortness of breath | CPT/HCPCS: 36415; 80048; 83880; 93005; 99214 ==

== ENCOUNTER → 2025-03-01 13:31 | Outpatient (BNVA) | payer MEDICARE, BC, SELFPAY | PROVIDERS: PCP Family Medicine; Visit Provider Nurse Practitioner Family | DX: R39.9 Unspecified symptoms and signs involving the genitourinary system (principal); N39.0 Urinary tract infection, site not specified | CPT/HCPCS: 81000; 87086 ==

== ENCOUNTER → 2025-03-09 11:51 | Outpatient (BNVA) | payer MEDICARE, BC, SELFPAY | PROVIDERS: PCP Family Medicine; Visit Provider Family Medicine | DX: R39.9 Unspecified symptoms and signs involving the genitourinary system (principal) | CPT/HCPCS: 81000 ==

== ENCOUNTER 2025-05-15 09:18 | Outpatient (CLI) | payer MEDICARE, BC, SELFPAY ==
[2025-05-15 10:51] LABS: Hematocrit 38.5 % (36-47); Hemoglobin 13.10 g/dL (11.27-16.99); Mean Corpuscular HGB Conc 34.0 g/dL (30-55); Mean Corpuscular Hemoglobin 32.4 pg (27-33); Mean Corpuscular Volume 95.3 fl (85-98); Nucleated Red Blood Cells % 0 %; Red Blood Count 4.04 10^6/uL (3.85-5.65); White Blood Count 6.87 10^3/uL (3.29-11.43)
[2025-05-15 11:10] LABS: Calcium 10.7 mg/dL (8.5-10.5)
[2025-05-15 11:11] LABS: Albumin Level 4.0 g/dL (3.5-5.2); Anion Gap 14.4 (5-19); Blood Urea Nitrogen 31 mg/dL (8-23); Calcium 10.8 mg/dL (8.5-10.5); Carbon Dioxide 24 mmol/L (22-29); Chloride 101 mmol/L (98-107); Glucose 111 mg/dL (65-115); Potassium 4.4 mmol/L (3.5-5.1); Sodium 135 mmol/L (136-145)
[2025-05-15 11:23] LABS: Creatinine Urine, Random 41 mg/dL (28-217); Microalbum Creatinine Ratio Ur 24 mg/dL (0-20)
[2025-05-15 12:08] LABS: Slide Review Slide Review Perform
[2025-05-15 12:09] LABS: Platelet Count 141 10^3/cmm (157-399)
== END 2025-05-15 09:19 | disposition home or self-care (01) ==
PROVIDERS: PCP Family Medicine; Visit Provider Registered Nurse
DX: N18.32 Chronic kidney disease, stage 3b (principal)
CPT/HCPCS: 36415; 80069; 82044; 82306; 82310; 83970; 85025

== ENCOUNTER → 2025-07-07 10:52 | Outpatient (BNVA) | payer MEDICARE, BC, SELFPAY | PROVIDERS: PCP Family Medicine; Visit Provider Internal Medicine Cardiovascular Disease | DX: R07.89 Other chest pain (principal); I13.0 Hypertensive heart and chronic kidney disease with heart failure and stage 1 through stage 4 chronic kidney disease, or unspecified chronic kidney disease; I50.9 Heart failure, unspecified; N18.32 Chronic kidney disease, stage 3b; E78.5 Hyperlipidemia, unspecified; G47.33 Obstructive sleep apnea (adult) (pediatric); Z99.89 Dependence on other enabling machines and devices; R06.02 Shortness of breath | CPT/HCPCS: 36415; 80048; 83880; 99214 ==